=== PATIENT | female | born 1940 | race Caucasian/White ===

== ENCOUNTER 2018-03-14 14:00 | Inpatient (IN) | payer MEDICARE, MEDICAID ==
[~2018-03-14] VITALS: Ht 160 cm; Wt 63.0 kg
--- NOTE | 2018-03-14 14:30 | NUR ---
77 yo female bb son. patient is alert and oriented, c/o diarrhea x 1 week. patient assisted to er bed, skin warm and dry, resp even and unlabored. awaiing orders from provder
[2018-03-14 14:50] LABS: BASOPHILS % (AUTO) 0.2 % (0.0-2.0); EOSINOPHILS % (AUTO) 0.6 % (0.0-6.0); HEMATOCRIT 30 % (33-45); HEMOGLOBIN 10.1 g/dL (11.5-14.8); LYMPHOCYTES # (AUTO) 2.4 /CMM (0.8-4.8); LYMPHOCYTES % (AUTO) 26.1 % (20.0-44.0); MEAN CORPUSCULAR HGB CONC 34 g/dl (31.0-36.0); MEAN CORPUSCULAR VOLUME 97 fL (82-100); MONOCYTES # (AUTO) 0.6 /CMM (0.1-1.30); MONOCYTES % (AUTO) 6.6 % (2.0-12.0); NEUTROPHILS % (AUTO) 66.5 % (43.0-81.0); PLATELET COUNT (AUTO) 252 /CMM (150-450); RED BLOOD CELL COUNT(AUTO) 3.12 MIL/uL (4.0-5.2); WHITE BLOOD COUNT (AUTO) 9.1 K/uL (4.3-11.0)
--- NOTE | 2018-03-14 14:55 | NUR ---
20g right hand iv started, blood sample obtained and sent to lab. medicated pt er ordered
[2018-03-14 14:58] LABS: CARBON DIOXIDE 26 mmol/L (21-32); CHLORIDE 98 mmol/L (98-107); CREATININE 0.8 mg/dL (0.6-1.3); GLUCOSE 191 mg/dL (74-106); POTASSIUM 3.9 mmol/L (3.5-5.1); SODIUM SERUM 134 mmol/L (136-145); UREA NITROGEN, BLOOD 19 mg/dL (7-18)
[2018-03-14] MEDS ORDERED: IV NS 0.9% 1,000 ML BAG IV ONE (15:00)
[2018-03-14 15:05] LABS: ALANINE AMINOTRANSFERASE 20 U/L (12-78); ALBUMIN 3.2 g/dL (3.4-5.0); ALKALINE PHOSPHATASE 145 U/L (46-116); ASPARTATE AMINOTRANSFERASE 17 U/L (15-37); BILIRUBIN,DIRECT 0.1 mg/dL (0.0-0.2); BILIRUBIN,TOTAL 0.4 mg/dL (0.2-1.0); TOTAL PROTEIN, SERUM 6.3 g/dL (6.4-8.2)
[2018-03-14] MEDS ORDERED: ESOM40CA PO (15:45)
[2018-03-14] MEDS ORDERED: ESCI20TA PO (15:45)
[2018-03-14] MEDS ORDERED: IRBE1TAB43 PO (15:45)
[2018-03-14] MEDS ORDERED: METF-440 PO (15:45)
[2018-03-14 16:04] LABS: APPEARANCE,URINE Clear (CLEAR); BILIRUBIN,URINE Negative (NEGATIVE); COLOR,URINE Yellow (YELLOW); KETONES,URINE Negative (NEGATIVE); LEUKOCYTE ESTERASE ,URINE Small (NEGATIVE); NITRITE, URINE Negative (NEGATIVE); PH,URINE 5.5 (5.0-8.0); PROTEIN,URINE Negative (NEGATIVE); UGLUCOSE Negative (NEGATIVE); UROBILINOGEN,URINE 0.2 EU/dL (0.2)
[2018-03-14 16:25] LABS: BACTERIA,URINE Rare /HPF (None Seen); BLOOD, URINE 2 Ery/uL (NEGATIVE); RBC,URINE 21-50 /HPF (0-2); SQUAMOUS EPITHELIAL CELL,UR Rare /HPF (None Seen)
--- NOTE | 2018-03-14 17:32 | NUR ---
REPORT GIVEN TO GERARDO FOR CONT OF CARE
--- NOTE | 2018-03-14 17:53 | NUR ---
pt transported to bed by emt
--- NOTE | 2018-03-14 17:55 | NUR ---
RN NOTE RECEIVED REPORT FROM DO IN THE ER. RECEIVED PATIENT 77 YEAR OLD FEMALE BROUGHT IN THE HOSPITAL BY SON FROM HOME FOR C/O DIARRHEA FOR 1 WEEK. PATIENT IS ALERT AND ORIENTED X4. SHE IS ABLE TO VERBALIZE NEEDS AND MAKE THINGS KNOWN. SHE IS ABLE TO SPEAK A LITTLE SWEDISH BUT PREFERRED LANGUAGE IS [place] VERDEAN. BREATHING EVEN UNLABORED WITH NO DISTRESS NOTED SATURATING WELL TO ROOM AIR. ON CARDIA MONITOR OF SINUS RHYTHM HR OF 96. PATIENT IS ABLE TO AMBULATE WITH ASSIST. SKIN INTACT AND WARM TO TOUCH. RIGHT HAND IV SITE INTACT PATENT SALINE LOCK. BED LOCK AND LOW POSITION. ALL SAFETY MEASURES DONE. WILL CONTINUE TO MONITOR.
[2018-03-14 18:25] VITALS: BP 164/89
[2018-03-14] MEDS ORDERED: IV NS 0.9% 1,000 ML IV PRN (18:53)
[2018-03-14] MEDS ORDERED: Z GUARD REMEDY 2 OZ OINT TP PRN (19:00)
[2018-03-14] MEDS ORDERED: ONDANSETRON HCL/PF 4 MG/2 ML VIAL IVP PRN (19:00)
[2018-03-14] MEDS ORDERED: ACETAMINOPHEN 325 MG TABLET PO PRN (19:00)
[2018-03-14] MEDS ORDERED: ZOLPIDEM TARTRATE 5 MG TABLET PO PRN (19:00)
[2018-03-14] MEDS ORDERED: HYDROCODONE/APAP 5/325MG 1 EACH TABLET PO PRN (19:00)
--- NOTE | 2018-03-14 19:30 | NUR ---
TELE/ RN NOTES; RECEIVED PT. IN BED W/ RA SAT. 98%. DENIES ANY C/O PAIN OR SOB AT PRESENT. A/O X 4. SPEAKS KUWAITI/INDIAN. ON TELE MONITOR W/ SR @ 92. ABLE TO MAKE NEEDS KNOWN. W/ IVF GOING VIA RIGHT HAND G 20 PATENT AND INTACT W/ NO S/S OF INFECTION/INFILTRATION NOTED. CONTINENT OF B/B. ABLE TO AMBULATE W/ STEADY GAIT TO THE BATHROOM. CALL LIGHT W/REACH. WILL CONTINUE TO MONITOR.
[2018-03-14 20:00] VITALS: BP 161/77
[2018-03-14] MEDS ORDERED: ENOXAPARIN SODIUM 40 MG/0.4 ML DISP.SYRIN SQ SCH (20:00)
[2018-03-14] MEDS ORDERED: CEFTRIAXONE 1 G in IV D5W 50 ML IV SCH (20:00)
[2018-03-14] MEDS: METRONIDAZOLE 500MG/ NS 100ML 500 MG in PREMIX 1 EA IV SCH (21:30)
[2018-03-15] VITALS: BP 147/73
[2018-03-15] MEDS ORDERED: CEFTRIAXONE 1 G in IV D5W 50 ML IV SCH (00:30)
[2018-03-15] MEDS ORDERED: METRONIDAZOLE 500MG/ NS 100ML 500 MG in PREMIX 1 EA IV SCH (00:30)
[2018-03-15 04:00] VITALS: BP 160/94
[2018-03-15] MEDS: METRONIDAZOLE 500MG/ NS 100ML 500 MG in PREMIX 1 EA IV SCH (04:29)
[2018-03-15] MEDS ORDERED: hydrALAZINE HCL IV 20 MG VIAL IV PRN (05:00)
[2018-03-15 06:06] VITALS: BP 139/76
[2018-03-15 06:55] LABS: BASOPHILS % (AUTO) 0.2 % (0.0-2.0); EOSINOPHILS % (AUTO) 1.3 % (0.0-6.0); HEMATOCRIT 32 % (33-45); HEMOGLOBIN 10.8 g/dL (11.5-14.8); LYMPHOCYTES # (AUTO) 2.9 /CMM (0.8-4.8); LYMPHOCYTES % (AUTO) 31.1 % (20.0-44.0); MEAN CORPUSCULAR HGB CONC 34 g/dl (31.0-36.0); MEAN CORPUSCULAR VOLUME 96 fL (82-100); MONOCYTES # (AUTO) 0.8 /CMM (0.1-1.30); MONOCYTES % (AUTO) 8.3 % (2.0-12.0); NEUTROPHILS # (AUTO) 5.4 /CMM (1.8-8.9); NEUTROPHILS % (AUTO) 59.1 % (43.0-81.0); PLATELET COUNT (AUTO) 271 /CMM (150-450); RDW COEFFICIENT OF VARIATION 17.3 (11.5-15.0); RED BLOOD CELL COUNT(AUTO) 3.31 MIL/uL (4.0-5.2); WHITE BLOOD COUNT (AUTO) 9.2 K/uL (4.3-11.0)
[2018-03-15 07:21] LABS: ALANINE AMINOTRANSFERASE 17 U/L (12-78); ALBUMIN 3.1 g/dL (3.4-5.0); ALKALINE PHOSPHATASE 113 U/L (46-116); ASPARTATE AMINOTRANSFERASE 20 U/L (15-37); BILIRUBIN,TOTAL 0.4 mg/dL (0.2-1.0); CARBON DIOXIDE 26 mmol/L (21-32); CHLORIDE 103 mmol/L (98-107); CHOLESTEROL 183 mg/dL (<200); CREATININE 0.6 mg/dL (0.6-1.3); GLUCOSE 144 mg/dL (74-106); HDL CHOLESTEROL 64 mg/dL (40-60); LDL 103 mg/dL (0-99); MAGNESIUM 1.5 mg/dL (1.8-2.4); PHOSPHORUS 3.6 mg/dL (2.5-4.9); POTASSIUM 3.5 mmol/L (3.5-5.1); SODIUM SERUM 138 mmol/L (136-145); THYROID STIMULATING HORMONE 1.474 uIU/mL (0.358-3.74); TOTAL PROTEIN, SERUM 6.5 g/dL (6.4-8.2); TRIGLYCERIDES 108 mg/dL (30-150); UREA NITROGEN, BLOOD 10 mg/dL (7-18)
--- NOTE | 2018-03-15 07:29 | NUR ---
TELE/RN NOTES: NO ACUTE CHANGES NOTED DURING THIS SHIFT. REPORT GIVEN TO AM NURSE FOR RAFA.
[2018-03-15 08:00] VITALS: BP 123/84
--- NOTE | 2018-03-15 08:30 | NUR ---
REPORT GIVEN TO LEONIDAS KEY FOR RAFA.
[2018-03-15] MEDS: ESCITALOPRAM OXALATE (10 MG) 10 MG TABLET PO SCH ×2 (08:45→08:48)
--- NOTE | 2018-03-15 09:57 | NUR ---
PLASTER LATHER NOTE: RECEIVED AN ORDER FROM DR. MELLY PECK THAT THE PATIENT CAN GO HOME TODAY FOR HER CHEMOTHERAPY SESSION. READ TO MD ALL THE PATIENT'S LAB WORKS FOR TODAY, INCLUDING THE VITAL SIGN THIS MORNING. PER MD, HE WILL CONTACT THE PATIENT WITHIN 2 DAYS RE: THE BLOOD CULTURE THAT WAS DONE ON 06/14/18. PER DR. PICKARD IT'S OKAY TO GIVE HIS CELLPHONE NUMBER AND PATIENT CAN ALSO CONTACT HIM WITHIN 2 DAYS FOR THE RESULTS AND THE PATIENT CAN ALSO PROVIDE TO HER PCP THE CP# OF DR. MELLY PECK FOR ANY QUESTIONS RE: PATIENT CARE DURING HOSPITALIZATION. PATIENT WAS ASKED FOR HER PREFERRED PHARMACY IN ORDER FOR DR. MELLY PECK TO SEND AN ELECTRONIC PRESCRIPTION FOR THE PATIENT. PATIENT WAS ALSO TOLD THAT SHE WILL BE PRESCRIBED BY MD FOR ANOTHER 7-10 DAYS COURSE OF ANTIBIOTIC. PATIENT UNDERSTOOD AND WAS INFORMED THAT PAPERWORK FOR DISCHARGE WILL BE PREPARE.
--- NOTE | 2018-03-15 10:30 | NUR ---
MS RN NOTE: PATIENT WAS DISCHARGED TO HOME ACCOMPANIED BY HER , [employer] VIA PRIVATE CAR. ALL DISCHARGE PAPERWORK WAS RELEASED TO THE PATIENT. EXIT CARE WAS DONE. EMPHASIZED TO PATIENT AND THAT THEY CAN ALWAYS CALL DR. MELLY PECK RE: THE BLOOD CULTURE RESULTS WITHIN [address] MELLY PECK'S CP NUMBER WAS GIVEN. NO VACCINE WAS GIVEN. INFORMED PATIENT THAT DR. MELLY PECK WILL SEND THE ELECTRONIC PRESCRIPTION DIRECTLY TO STATE [facility] TEL #: [phone] AND FAX #: [phone]. DR. MELLY PECK WAS AWARE OF THE STATE [facility]'S INFORMATION. ALL BELONGINGS WERE RELEASED TO THE PATIENT UPON DISCHARGE. PATIENT WAS WHEELED OUT TO THE MAIN LOBBY VIA WHEELCHAIR BY THE ASSIGNED NEON SIGN INSTALLER. DENIED PAIN AND NO EPISODE OF DIARRHEA UPON DISCHARGE.
== END 2018-03-15 10:26 | disposition home or self-care (01) | DRG 371 ==
LOC: ER 14:01 → TELE1 17:11 → MEDSG1 03-15 09:58
PROVIDERS: ADMIT Nurse Practitioner Acute Care; ATTEND Nurse Practitioner Acute Care
DX: A04.9 Bacterial intestinal infection, unspecified (principal); N17.0 Acute kidney failure with tubular necrosis; E87.2 Acidosis; C25.9 Malignant neoplasm of pancreas, unspecified; E87.1 Hypo-osmolality and hyponatremia; D63.8 Anemia in other chronic diseases classified elsewhere; N39.0 Urinary tract infection, site not specified; I10 Essential (primary) hypertension; I25.10 Atherosclerotic heart disease of native coronary artery without angina pectoris; E88.09 Other disorders of plasma-protein metabolism, not elsewhere classified; Z90.710 Acquired absence of both cervix and uterus; Z79.899 Other long term (current) drug therapy
CPT/HCPCS: 36415; 80048-TC; 80053-TC; 80061-TC; 80076-TC; 81000-TC; 83605-TC; 83735-TC; 84100-TC; 84443-TC; 85025-TC; 87040-TC; 87081-TC; 93307-TC; A4216; A4606; J0360; J0696; J1650; J3490; J7030; J7060; Z7610

== ENCOUNTER 2018-03-28 12:36 | Outpatient (CLI) | payer MEDICARE, MEDICAID ==
[~2018-03-28] VITALS: Ht 160 cm; Wt 63.0 kg
[~2018-03-28 12:36] MED LIST: ESCI20TA PO; ESOM40CA PO; IRBE1TAB43 PO; METF500T4 PO
[2018-03-28 12:45] VITALS: BP 118/66
== END 2018-03-28 23:59 | disposition home or self-care (01) ==
LOC: MSC 12:36
PROVIDERS: ATTEND Internal Medicine
DX: Z09 Encounter for follow-up examination after completed treatment for conditions other than malignant neoplasm (principal); E11.9 Type 2 diabetes mellitus without complications; Z79.84 Long term (current) use of oral hypoglycemic drugs; C25.9 Malignant neoplasm of pancreas, unspecified; Z85.038 Personal history of other malignant neoplasm of large intestine; D53.9 Nutritional anemia, unspecified

== ENCOUNTER 2018-04-02 08:13 | Inpatient (IN) | payer MEDICARE, MEDICAID ==
[~2018-04-02] VITALS: Ht 172.7 cm; Wt 63.5 kg
[~2018-04-02 08:13] MED LIST changes: +METF-440 PO; -METF500T4 PO
--- NOTE | 2018-04-02 08:13 | NUR ---
BBFAMILY FOR WEAKNESS AND DIZZINESS, S/P FELL AND PASSED OUT LAST NIGHT. PLACED ON MONITOR. AWAITING MD ORDER
--- NOTE | 2018-04-02 08:17 | NUR ---
CALLED IN WR- PT IS IN THE RESTROOM
[2018-04-02] MEDS ORDERED: IV NS 0.9% 1,000 ML BAG IV ONE (09:00)
[2018-04-02] MEDS ORDERED: METH2.5T PO (09:02)
[2018-04-02] MEDS ORDERED: AMLO5TAB7 PO (09:02)
[2018-04-02] MEDS ORDERED: ENOX60DI SQ (09:02)
[2018-04-02] MEDS ORDERED: METO-356 PO (09:02)
[2018-04-02 09:07] LABS: BASOPHILS # (AUTO) 0.1 /CMM (0.0-0.2); BASOPHILS % (AUTO) 0.4 % (0.0-2.0); EOSINOPHILS % (AUTO) 0.1 % (0.0-6.0); HEMATOCRIT 26 % (33-45); HEMOGLOBIN 8.9 g/dL (11.5-14.8); LYMPHOCYTES # (AUTO) 2.5 /CMM (0.8-4.8); LYMPHOCYTES % (AUTO) 7.3 % (20.0-44.0); MEAN CORPUSCULAR HGB CONC 34 g/dl (31.0-36.0); MEAN CORPUSCULAR VOLUME 97 fL (82-100); MONOCYTES # (AUTO) 5.9 /CMM (0.1-1.30); MONOCYTES % (AUTO) 17.6 % (2.0-12.0); NEUTROPHILS % (AUTO) 74.6 % (43.0-81.0); PLATELET COUNT (AUTO) 53 /CMM (150-450); RDW COEFFICIENT OF VARIATION 17.9 (11.5-15.0); RED BLOOD CELL COUNT(AUTO) 2.72 MIL/uL (4.0-5.2)
[2018-04-02 09:29] LABS: ALANINE AMINOTRANSFERASE 31 U/L (12-78); ALBUMIN 3.2 g/dL (3.4-5.0); ALKALINE PHOSPHATASE 210 U/L (46-116); ASPARTATE AMINOTRANSFERASE 40 U/L (15-37); BILIRUBIN,DIRECT 0.2 mg/dL (0.0-0.2); BILIRUBIN,TOTAL 1.1 mg/dL (0.2-1.0); CALCIUM, SERUM 9.2 mg/dL (8.5-10.1); CARBON DIOXIDE 26 mmol/L (21-32); CHLORIDE 100 mmol/L (98-107); CREATININE 0.7 mg/dL (0.6-1.3); GLUCOSE 137 mg/dL (74-106); POTASSIUM 3.2 mmol/L (3.5-5.1); SODIUM SERUM 136 mmol/L (136-145); TOTAL PROTEIN, SERUM 6.3 g/dL (6.4-8.2); UREA NITROGEN, BLOOD 14 mg/dL (7-18); WHITE BLOOD COUNT (AUTO) 33.5 K/uL (4.3-11.0)
[2018-04-02 09:30] LABS: INR 0.99 (0.87-1.13)
[2018-04-02 09:31] LABS: TROPONIN I < 0.017 ng/mL (0.00-0.056)
[2018-04-02 09:56] LABS: BAND % (MANUAL) 5 % (0.0-5.0); LYMPHOCYTES % (MANUAL) 8 % (16-48); METAMYELOCYTES % 1 % (0-0); MONOCYTES % (MANUAL) 14 % (0-11.0); MYELOCYTES % 1 % (0-0); NEUTROPHILS % (MANUAL) 71 (42-76)
--- NOTE | 2018-04-02 09:57 | NUR ---
VOTING MACHINE REPAIRER AT BEDSIDE
[2018-04-02] MEDS ORDERED: IOHEXOL-350 100 ML VIAL IV ONE (10:07)
--- NOTE | 2018-04-02 10:13 | NUR ---
PT TAKEN TO CT
[2018-04-02 10:15] LABS: APPEARANCE,URINE Slightly Cloudy (CLEAR); BILIRUBIN,URINE Negative (NEGATIVE); BLOOD, URINE Trace-intact Ery/uL (NEGATIVE); COLOR,URINE Yellow (YELLOW); KETONES,URINE 15 (NEGATIVE); LEUKOCYTE ESTERASE ,URINE Trace (NEGATIVE); NITRITE, URINE Negative (NEGATIVE); PH,URINE 8.5 (5.0-8.0); PROTEIN,URINE 30 mg/dl (NEGATIVE); UGLUCOSE Negative (NEGATIVE)
[2018-04-02] MEDS ORDERED: VANCOMYCIN 1 GM in IV D5W 250 ML IV ONE (10:30)
[2018-04-02] MEDS ORDERED: MEROPENEM 1,000 MG in IV NS 0.9% 50 ML IV ONE (10:30)
[2018-04-02 10:34] LABS: RBC,URINE 0-2 /HPF (0-2)
--- NOTE | 2018-04-02 10:34 | NUR ---
TELE 306.2 NURSE HARMON
[2018-04-02 10:35] LABS: BACTERIA,URINE Few /HPF (None Seen); SQUAMOUS EPITHELIAL CELL,UR Few /HPF (None Seen)
--- NOTE | 2018-04-02 11:13 | NUR ---
REPORT GIVEN TO [facility] ROOM 306-2 TRNASFER VIA ACLS PROTOCOL.
--- NOTE | 2018-04-02 11:14 | NUR ---
ANAMARIA STARTED ENDORSE TO JOSUE TO CONTINUE INPATIENT
[2018-04-02 11:30] VITALS: BP 150/76
--- NOTE | 2018-04-02 11:30 | NUR ---
ADMISSION NOTES PATIENT ADMITTED FROM ER 77 Y/OL [place] SPEAKER FEMALE PATIENT ON TELE, DX OF UTI, SYNCOPE, AND PMN. PATIENT ON TELE MONITOR ST-119. PATIENT HAS NO ACUTE RESPIRATORY DISTRESS. PATIENT A/O X3, FORGETFUL, COMPLAINING OF NAUSEA, AND ABDOMINAL PAIN 5/10 PER PAIN SCALE. PATIENT REFUSED PAIN MEDICATION AT THIS TIME, PATIENT STATE " I WOULD LIKE TO SLEEP NOW". PATIENT SKIN ASSESSMENT DONE SKIN INTACT. PATIENT AMBULATORY, USING BATHROOM. V/S TAKEN T-98.1, R-19, P-119, BP-150/76, 02- ROOM AIR. PATIENT HAS A IV PORT ON RIGHT UPPER CHEAT INTACT INFUSING VANCOMYCIN AT THIS TIME FROM ER. NEEDS ATTENDED AND ANTICIPATED. MELLY PECK INBOUND TELEMARKETER AWARE OF NEW PATIENT AND MEDICATION. NEXT TO THE BED. CALL LIGHT WITHIN TO REACH. CONTINUED MONITORING. PATIENT'S HOME MEDICATION SANDED TO THE PHARMACY.
[2018-04-02] MEDS ORDERED: LIPA1CAP15 PO (13:12)
--- NOTE | 2018-04-02 13:52 | NUR ---
RN NOTES PATIENT IN THE BED NO ACUTE DISTRESS, ASSIST GOING BATHROOM, PAGED MELLY PECK FOR MEDICATION RECONCILIATION, AND DIET, WAITING FOR RESPOND. CALL LIGHT WITHIN TO REACH. FAMILY NEXT TO THE BED. CONTINUED MONITORING.
[2018-04-02] MEDS ORDERED: ACETAMINOPHEN 325 MG TABLET PO PRN ×2 (16:00→23:30)
[2018-04-02] MEDS: HYDROCODONE/APAP 10/325MG 1 EA TABLET PO PRN (16:13)
--- NOTE | 2018-04-02 16:13 | NUR ---
RN NOTES TAKEN RECTAL TEMPERATURE AND GET 101.5 F. ADMINISTERED NARCO 10/325 MG PO PRN PRESCRIBED BY MD. ALSO ADMINISTERED ICE APPLICANT, AND CRASHED ICE. CONTINUED MONITORING.
[2018-04-02 16:33] VITALS: BP 147/75
--- NOTE | 2018-04-02 17:59 | NUR ---
RN NOTES T-98.5f AT THIS TIME, V/S STABLE, NO COMPLAINING OF PAIN AT THIS TIME. PATIENT EATING DINNER, CALL LIGHT WITHIN TO REACH. NEXT TO THE BED. CONTINUED MONITORING.
--- NOTE | 2018-04-02 19:25 | NUR ---
MILITARY SCIENCE INSTRUCTOR OPENING NOTE RECEIVED PATIENT IN BED, ALERT ORIENTED X3, ON ROOM AIR, TOLERATING WELL. IN NO APPARENT DISTRESS OR DISCOMFORT AT THIS TIME. RESPIRATIONS EVEN AND UNLABORED. DENIES PAIN AND SOB. PATIENT ON TELE MONITORING WITH HEART RATE OF 114 SINUS TACHY. PATIENT WITH RIGHT UPPER CHEST PORTACATH. PATENT AND INTACT. BATHROOM PRIVILEGES WITH ASSISTANCE, PATIENT IS OMANI SPEAKING, ABLE TO VERBALIZE NEEDS, AT BEDSIDE, INSTRUCTIONS GIVEN TO CALL BEFORE GETTING UP. SAFETY MEASURES IN PLACE, BED IN LOW LOCKED POSITION M SIDE RAILS UP X2, CALL LIGHT WITHIN EASY REACH. WILL CONTINUE TO MONITOR.
[2018-04-02 19:46] VITALS: BP 120/61
[2018-04-02 20:00] VITALS: BP 120/61
[2018-04-02] MEDS ORDERED: IV NS 0.9% 1,000 ML IV PRN (23:11)
[2018-04-02] MEDS ORDERED: ZOLPIDEM TARTRATE 5 MG TABLET PO PRN (23:30)
[2018-04-02] MEDS ORDERED: ONDANSETRON HCL/PF 4 MG/2 ML VIAL IVP PRN (23:30)
[2018-04-02] MEDS ORDERED: Z GUARD REMEDY 2 OZ OINT TP PRN (23:30)
[2018-04-03] MEDS ORDERED: VANCOMYCIN 1 GM in IV NS 0.9% 250 ML IV ONE ×2
[2018-04-03] MEDS ORDERED: VANCOMYCIN 1 GM VIAL ONE (00:08)
[2018-04-03] MEDS: HYDROCODONE/APAP 10/325MG 1 EA TABLET PO PRN (00:25)
[2018-04-03] MEDS ORDERED: METOPROLOL TARTRATE 25 MG TABLET PO ONE (01:00)
[2018-04-03 01:37] VITALS: BP 176/89
--- NOTE | 2018-04-03 01:45 | NUR ---
PATIENT HAS BEEN SINUS TACHY IN 120S SINCE THE ADMISSION. PATIENT'S HEART RATE INCREASED TO 130S SEVERAL TIMES. BP ELEVATED TO 163/95. REPORTED TO GENERAL MERCHANDISE MANAGER DR. CLIFF SIMON. RECEIVED ORDERS FOR LOPRESSOR 25MG X1. ADMINISTERED MEDICATION ORDERED, WILL CONTINUE TO MONITOR. AND REASSESS.
--- NOTE | 2018-04-03 03:30 | NUR ---
PATIENT BP DECREASED TO 121/67 WITH HR OF 101. WILL CONTINUE TO MONITOR.
[2018-04-03] MEDS ORDERED: POTASSIUM CHLORIDE 20 MEQ TAB.PRT.SR PO ONE (04:00)
--- NOTE | 2018-04-03 04:00 | NUR ---
CONTACTED DR. SIMON REGARDING PATIENT'S POTASSIUM LEVEL OF 3.2 . ORDER RECEIVED FOR K-DUR 40MEQ. WILL ADMINISTER MEDICATION ORDERED AND CONTINUE TO MONITOR.
[2018-04-03] MEDS ORDERED: MEROPENEM 1 G VIAL IV ONE (04:33)
[2018-04-03 04:35] VITALS: BP 121/67
[2018-04-03] MEDS: MEROPENEM 1 G in IV NS 0.9% 100 ML IV SCH ×3 (04:48→20:20)
[2018-04-03 06:53] LABS: EOSINOPHILS % (AUTO) 0.2 % (0.0-6.0); HEMATOCRIT 23 % (33-45); HEMOGLOBIN 7.6 g/dL (11.5-14.8); LYMPHOCYTES # (AUTO) 1.9 /CMM (0.8-4.8); LYMPHOCYTES % (AUTO) 5.9 % (20.0-44.0); MEAN CORPUSCULAR HGB CONC 33 g/dl (31.0-36.0); MEAN CORPUSCULAR VOLUME 97 fL (82-100); MONOCYTES # (AUTO) 0.7 /CMM (0.1-1.30); MONOCYTES % (AUTO) 2.3 % (2.0-12.0); NEUTROPHILS # (AUTO) 28.8 /CMM (1.8-8.9); NEUTROPHILS % (AUTO) 91.6 % (43.0-81.0); RDW COEFFICIENT OF VARIATION 19.1 (11.5-15.0); RED BLOOD CELL COUNT(AUTO) 2.36 MIL/uL (4.0-5.2)
[2018-04-03 06:54] LABS: ALANINE AMINOTRANSFERASE 20 U/L (12-78); ALBUMIN 2.5 g/dL (3.4-5.0); ALKALINE PHOSPHATASE 196 U/L (46-116); ASPARTATE AMINOTRANSFERASE 30 U/L (15-37); BILIRUBIN,TOTAL 0.6 mg/dL (0.2-1.0); CALCIUM, SERUM 7.9 mg/dL (8.5-10.1); CARBON DIOXIDE 24 mmol/L (21-32); CHLORIDE 101 mmol/L (98-107); CREATININE 0.8 mg/dL (0.6-1.3); GLUCOSE 139 mg/dL (74-106); PHOSPHORUS 2.7 mg/dL (2.5-4.9); SODIUM SERUM 136 mmol/L (136-145); TOTAL PROTEIN, SERUM 5.3 g/dL (6.4-8.2); UREA NITROGEN, BLOOD 10 mg/dL (7-18)
[2018-04-03 06:55] LABS: PLATELET COUNT (AUTO) 36 /CMM (150-450); WHITE BLOOD COUNT (AUTO) 31.4 K/uL (4.3-11.0)
--- NOTE | 2018-04-03 06:55 | NUR ---
MODELING AND SIMULATION ANALYST CLOSING NOTE PATIENT IN BED, SLEEPING, EASILY AROUSED WITH VERBAL STIMULI, ORIENTED X3, ON ROOM AIR, TOLERATING WELL. IN NO APPARENT DISTRESS OR DISCOMFORT AT THIS TIME. RESPIRATIONS EVEN AND UNLABORED. DENIES PAIN AND SOB. PATIENT ON TELE MONITORING WITH HEART RATE OF 100 SINUS TACHY. PATIENT WITH RIGHT UPPER CHEST PORTACATH., INTACT. RIGHT WRIST 22G IVC, PATENT AND INTACT WITH FLUIDS RUNNING AT 75ML/HR. BATHROOM PRIVILEGES WITH ASSISTANCE, PATIENT IS LIBERIAN SPEAKING, ABLE TO VERBALIZE NEEDS. PATIENT DID NOT EXHIBIT FEVER THROUGHOUT SHIFT. ALL NURSING INTERVENTIONS COMPLETE, ORDERS CARRIED OUT. KEPT CLEAN AND COMFORTABLE. SAFETY MEASURES IN PLACE, BED IN LOW LOCKED POSITION SIDE RAILS UP X2, CALL LIGHT WITHIN EASY REACH. WILL ENDORSE TO AM NURSE FOR RAFA.
[2018-04-03 07:02] LABS: IRON, SERUM 29 ug/dl (50-175); TOTAL IRON BINDING CAPACITY 211 ug/dl (250-450)
[2018-04-03 07:04] LABS: MAGNESIUM 1.4 mg/dL (1.8-2.4)
[2018-04-03 07:45] LABS: POTASSIUM 2.7 mmol/L (3.5-5.1)
[2018-04-03] MEDS ORDERED: FEE PK DOSING 1 MIN EA MC ONE (07:59)
[2018-04-03 08:00] VITALS: BP 125/63
[2018-04-03] MEDS ORDERED: AMYLASE/LIPASE/PROTEASE 1 CAP CAPSULE.DR PO SCH (08:00)
--- NOTE | 2018-04-03 08:00 | NUR ---
TELEPHONE SUPERVISOR AM NOTES RECEIVED PATIENT IN BED, ALERT ORIENTED X3, ON ROOM AIR, TOLERATING WELL. IN NO APPARENT DISTRESS OR DISCOMFORT AT THIS TIME. RESPIRATIONS EVEN AND UNLABORED. DENIES PAIN AND SOB. PATIENT ON TELE MONITORING WITH HEART RATE OF 114 SINUS TACHY. PATIENT WITH RIGHT UPPER CHEST PORTACATH. PATENT AND INTACT. BATHROOM PRIVILEGES WITH ASSISTANCE, PATIENT IS ETHIOPIAN SPEAKING, ABLE TO VERBALIZE NEEDS, AT BEDSIDE, INSTRUCTIONS GIVEN TO CALL BEFORE GETTING UP. SAFETY MEASURES IN PLACE, BED IN LOW LOCKED POSITION M SIDE RAILS UP X2, CALL LIGHT WITHIN EASY REACH. WILL CONTINUE TO MONITOR.
--- NOTE | 2018-04-03 08:10 | NUR ---
DR PECK AND PHARMACIST MADE AWARE OF K+2.7,MG 1.4 WITH ORDERS FOR REPLACEMENT.DR PECK AWARE OF PLT CT 36 AND WBC 31.4
[2018-04-03 08:20] LABS: CHOLESTEROL 157 mg/dL (<200); HDL CHOLESTEROL 38 mg/dL (40-60); LDL 90 mg/dL (0-99); THYROID STIMULATING HORMONE 2.477 uIU/mL (0.358-3.74); TRIGLYCERIDES 110 mg/dL (30-150)
[2018-04-03] MEDS: ESCITALOPRAM OXALATE (10 MG) 10 MG TABLET PO SCH (08:52)
[2018-04-03] MEDS: METOPROLOL SUCCINATE 25 MG TAB.SR.24H PO SCH (08:53)
[2018-04-03] MEDS: LIPASE/PROTEASE/AMYLASE 1 EACH CAPSULE.DR PO SCH ×3 (08:53→18:31)
[2018-04-03] MEDS: PANTOPRAZOLE 40 MG TABLET.DR PO SCH (08:53)
[2018-04-03] MEDS: AMLODIPINE BESYLATE 5 MG TABLET PO SCH (08:54)
[2018-04-03] MEDS: POTASSIUM CHLORIDE 20 MEQ TAB.PRT.SR PO SCH ×3 (08:54→11:40)
[2018-04-03] MEDS ORDERED: ENOXAPARIN SODIUM 60 MG/0.6 ML DISP.SYRIN SQ SCH (09:00)
[2018-04-03 09:23] LABS: BAND % (MANUAL) 17 % (0.0-5.0); LYMPHOCYTES % (MANUAL) 4 % (16-48); MONOCYTES % (MANUAL) 9 % (0-11.0); NEUTROPHILS % (MANUAL) 70 (42-76)
[2018-04-03] MEDS: Magnesium 1GM/D5W 100ML PREMIX 100 ML IV SCH ×3 (09:32→13:01)
[2018-04-03] MEDS: VANCOMYCIN 0.75 GM in IV D5W 250 ML IV SCH ×2 (13:02→23:30)
[2018-04-03 16:00] VITALS: BP 125/64
--- NOTE | 2018-04-03 17:49 | NUR ---
Patient speaks Comoran, she is alert and pleasant, at bedside. She lives locally with her spouse. She was ambulatory and independent with adl's prior to admit. Has no DME or homehealth reported. Family is involved and supportive, family will provide ride once discharge. Addendum: 04/03/18 at 1750 by CHASITY YAÑEZ RN Amended: Links added.
--- NOTE | 2018-04-03 19:40 | NUR ---
MS RN INITIAL NOTE PT IS IN BED AWAKE AND ALERT, SLIGHT LANGUAGE BARRIER. DAY RN TO TRANSLATE SAFETY, USE OF CALL LIGHT AND ADDRESS AND OTHER QUESTIONS PT MAY HAVE. NO SIGNS OF SOB OR DISTRESS, BREATHING EVENLY AND UNLABORED ON RA. DENIES PAIN AT THIS TIME. IV ACCESS IS INTACT AND PATENT. BED IS IN LOW AND LOCKED POSITION, BED ALARM IS ON, CALL LIGHT WITHIN REACH. WILL CONTINUE TO MONITOR PT
[2018-04-03 20:00] VITALS: BP 151/82
[2018-04-04] VITALS (10 sets, daily range): BP systolic 132–181; BP diastolic 72–91
[2018-04-04] MEDS: MEROPENEM 1 G in IV NS 0.9% 100 ML IV SCH ×3 (04:02→22:54)
--- NOTE | 2018-04-04 06:36 | NUR ---
MS RN CLOSING NOTE PT IS IN BED SLEEPING, EASILY AROUSED. NO SIGNS OF SOB OR DISTRESS, BREATHING EVENLY AND UNLABORED ON RA. IV ACCESS IS INTACT AND PATENT WITH FLUIDS INFUSING. ALL NEEDS WERE ANTICIAPTED AND MET. BED IS IN LOW AND LOCKED POSITION, BED ALARM IS ON, CALL LIGHT WITHIN REACH. WILL ENODRSE TO DAYSHIFT
[2018-04-04 06:39] LABS: EOSINOPHILS % (AUTO) 0.2 % (0.0-6.0); HEMATOCRIT 24 % (33-45); HEMOGLOBIN 7.9 g/dL (11.5-14.8); LYMPHOCYTES # (AUTO) 1.7 /CMM (0.8-4.8); LYMPHOCYTES % (AUTO) 4.5 % (20.0-44.0); MEAN CORPUSCULAR HGB CONC 33 g/dl (31.0-36.0); MEAN CORPUSCULAR VOLUME 97 fL (82-100); MONOCYTES # (AUTO) 0.8 /CMM (0.1-1.30); MONOCYTES % (AUTO) 2.2 % (2.0-12.0); NEUTROPHILS # (AUTO) 34.7 /CMM (1.8-8.9); NEUTROPHILS % (AUTO) 93.1 % (43.0-81.0); RDW COEFFICIENT OF VARIATION 19.2 (11.5-15.0); RED BLOOD CELL COUNT(AUTO) 2.45 MIL/uL (4.0-5.2)
[2018-04-04 06:59] LABS: WHITE BLOOD COUNT (AUTO) 37.3 K/uL (4.3-11.0)
[2018-04-04 07:00] LABS: PLATELET COUNT (AUTO) 39 /CMM (150-450)
[2018-04-04 07:12] LABS: ALANINE AMINOTRANSFERASE 18 U/L (12-78); ALBUMIN 2.3 g/dL (3.4-5.0); ALKALINE PHOSPHATASE 242 U/L (46-116); ASPARTATE AMINOTRANSFERASE 22 U/L (15-37); BILIRUBIN,TOTAL 0.6 mg/dL (0.2-1.0); CARBON DIOXIDE 23 mmol/L (21-32); CHLORIDE 100 mmol/L (98-107); CREATININE 0.7 mg/dL (0.6-1.3); GLUCOSE 186 mg/dL (74-106); MAGNESIUM 1.8 mg/dL (1.8-2.4); PHOSPHORUS 1.4 mg/dL (2.5-4.9); POTASSIUM 3.5 mmol/L (3.5-5.1); SODIUM SERUM 133 mmol/L (136-145); TOTAL PROTEIN, SERUM 5.4 g/dL (6.4-8.2); UREA NITROGEN, BLOOD 11 mg/dL (7-18)
[2018-04-04 07:13] LABS: TROPONIN I 0.029 ng/mL (0.00-0.056)
[2018-04-04 07:56] LABS: BAND % (MANUAL) 6 % (0.0-5.0); LYMPHOCYTES % (MANUAL) 7 % (16-48); MONOCYTES % (MANUAL) 8 % (0-11.0); NEUTROPHILS % (MANUAL) 79 (42-76)
--- NOTE | 2018-04-04 08:00 | NUR ---
MS RN AM NOTES RECEIVED PATIENT IN BED, ALERT ORIENTED X2, PT IS CONFUSED AND IS A FALL RISK.PT ATTEMPTED SEVERAL TIMES OF GETTING OUT OF BED WITHOUT ASSISTANCE ALMOST PULLING OUT HER IV PERIPHERAL IV.ON BED ALARM.ON O2 AT 2L/MIN VIA N/C.WITH NO APPARENT DISTRESS OR DISCOMFORT AT THIS TIME. RESPIRATIONS EVEN AND UNLABORED. DENIES PAIN AND SOB. PATIENT WITH RIGHT UPPER CHEST PORTACATH.SITE CLEAN AND DRY. WITH ONGOING IVF OF NS AT 75ML/HR TO RT WRIST INFUSING WELL.PATENT AND INTACT. BATHROOM PRIVILEGES WITH ASSISTANCE, PATIENT IS CUBAN SPEAKING, ABLE TO VERBALIZE NEEDS, AT BEDSIDE, INSTRUCTIONS GIVEN TO CALL BEFORE GETTING UP. SAFETY MEASURES IN PLACE, BED IN LOW LOCKED POSITION.SIDE RAILS UP X2, CALL LIGHT WITHIN EASY REACH. WILL CONTINUE TO MONITOR.
[2018-04-04] MEDS ORDERED: POTASSIUM PHOSPHATE MM 15 MMOL in IV D5W 250 ML IV SCH (08:30)
[2018-04-04] MEDS: ESCITALOPRAM OXALATE (10 MG) 10 MG TABLET PO SCH (08:57)
[2018-04-04] MEDS: LIPASE/PROTEASE/AMYLASE 1 EACH CAPSULE.DR PO SCH ×3 (08:57→18:34)
[2018-04-04] MEDS: AMLODIPINE BESYLATE 5 MG TABLET PO SCH (08:58)
[2018-04-04] MEDS: METOPROLOL SUCCINATE 25 MG TAB.SR.24H PO SCH (08:58)
[2018-04-04] MEDS: PANTOPRAZOLE 40 MG TABLET.DR PO SCH (09:03)
[2018-04-04] MEDS: Potassium Phosphate meq 11 MEQ in IV D5W 100 ML IV SCH ×2 (11:10→12:54)
[2018-04-04] MEDS: VANCOMYCIN 0.75 GM in IV D5W 250 ML IV SCH (12:54)
--- NOTE | 2018-04-04 16:30 | NUR ---
CALLED PT'S ONCOLOGIST,DR KO CARDENAS AND SPOKE TO AF TO OBTAIN PT'S LABS AND RECORDS OF PT'S MOST RECENT VISIT.AF STATED SHE WILL FAX IT OVER.AWAITING FOR LABS AND RECORDS TO BE FAXED OVER.
--- NOTE | 2018-04-04 17:05 | NUR ---
RECEIVED FAXED PT'S RECENT MEDICAL RECORDS AND LABS FROM PT'S ONCOLOGIST:DR KO CARDENAS AND PLACED IN CHART.
--- NOTE | 2018-04-04 17:42 | NUR ---
NOTIFIED DR BAI OF PT'S LACTIC ACID OF 2.[address] BAI STATED TO CALL DR TIWARI INSTEAD OF THE LACTIC ACID RESULT.
--- NOTE | 2018-04-04 17:50 | NUR ---
PAGED DR MCKINLEY (TROUBLE LOCATER FOR DR TIWARI) AND AWAITING TO RETURN CALL.
[2018-04-04] MEDS: IV NS 0.9% 1,000 ML IV PRN (18:00)
--- NOTE | 2018-04-04 18:30 | NUR ---
PAGED DR MCKINLEY(ROOFER VINYL COATING FOR DR TIWARI)FOR LACTIC ACID OF 2.7 THE 2ND TIME AND AWAITING TO RETURN CALL.
--- NOTE | 2018-04-04 18:59 | NUR ---
DR TIWARI RETURNED CALL AND MADE AWARE OF LACTIC ACID OF 2.7 WITH NO NEW ORDER.DR BAI ALSO AWARE.
[2018-04-04] MEDS: FOLIC ACID 1 MG TABLET PO SCH ×2 (19:24→19:26)
[2018-04-04] MEDS: VANCOMYCIN HCL 125 MG/2.5 ML ORAL.SUSP PO SCH ×2 (19:24→19:26)
[2018-04-04] MEDS: HYDROCODONE/APAP 10/325MG 1 EA TABLET PO PRN (19:26)
--- NOTE | 2018-04-04 19:30 | NUR ---
CALLED PHARMACIST ABOUT MYCAM[facility] IVPB WHICH IS STILL NOT AVAILABLE AT THIS TIME.AWAITING FOR DELIVERY.
--- NOTE | 2018-04-04 19:30 | NUR ---
MS/RN OPENING NOTES PT RECEIVED WITH EYES CLOSED. A/OX3. AMERICAN SPEAKING BUT UNDERSTANDS CZECH. ON 2L O2 VIA NC, BREATHING EVEN AND UNLABORED. NO SOB NOTED. RECEIVED PAIN MEDICATION, PAIN NOW 3/10 TO RIGHT WRIST. IV TO RIGHT HAND PATENT AND INTACT RUNNING IVF ORDERED. BED IN LOW/LOCKED POSITION WITH CALL LIGHT IN REACH. SIDE RAILS UPX2 AND BED ALARM ON FOR SAFETY. WILL CONTINUE TO MONITOR
[2018-04-04 20:00] LABS: BILIRUBIN,DIRECT 0.1 mg/dL (0.0-0.2)
[2018-04-04] MEDS: MICAFUNGIN SODIUM 100 MG in IV NS 0.9% 100 ML IV SCH (20:11)
--- NOTE | 2018-04-04 20:15 | NUR ---
MS/RN NOTES ADMINISTERED MYCAMINE LATE, PHARMACY PROVIDED AFTER SCHEDULED TIME.
--- NOTE | 2018-04-04 21:12 | NUR ---
MS/RN NOTES SPOKE TO MELLY PECK. NOTIFIED HIM OF PT'S LACTIC ACID OF 2.8. NO NEW ORDERS AT THIS TIME
[2018-04-05] VITALS (8 sets, daily range): BP systolic 136–150; BP diastolic 76–88
[2018-04-05] MEDS: VANCOMYCIN 1 GM in IV D5W 250 ML IV SCH ×2 (00:24→11:55)
[2018-04-05] MEDS: IV NS 0.9% 1,000 ML IV PRN (01:43)
[2018-04-05] MEDS: MEROPENEM 1 G in IV NS 0.9% 100 ML IV SCH ×4 (05:30→21:56)
[2018-04-05] MEDS: VANCOMYCIN HCL 125 MG/2.5 ML ORAL.SUSP PO SCH ×3 (05:30→17:15)
[2018-04-05 06:45] LABS: CALCIUM, SERUM 7.5 mg/dL (8.5-10.1); CARBON DIOXIDE 24 mmol/L (21-32); CHLORIDE 105 mmol/L (98-107); CREATININE 0.6 mg/dL (0.6-1.3); GLUCOSE 172 mg/dL (74-106); POTASSIUM 3.4 mmol/L (3.5-5.1); SODIUM SERUM 136 mmol/L (136-145); UREA NITROGEN, BLOOD 7 mg/dL (7-18)
[2018-04-05 07:41] LABS: EOSINOPHILS % (AUTO) 0.5 % (0.0-6.0); HEMATOCRIT 21 % (33-45); LYMPHOCYTES # (AUTO) 1.7 /CMM (0.8-4.8); LYMPHOCYTES % (AUTO) 4.5 % (20.0-44.0); MEAN CORPUSCULAR HGB CONC 33 g/dl (31.0-36.0); MEAN CORPUSCULAR VOLUME 96 fL (82-100); MONOCYTES # (AUTO) 1.1 /CMM (0.1-1.30); MONOCYTES % (AUTO) 3.1 % (2.0-12.0); NEUTROPHILS % (AUTO) 91.9 % (43.0-81.0); RDW COEFFICIENT OF VARIATION 18.9 (11.5-15.0); RED BLOOD CELL COUNT(AUTO) 2.16 MIL/uL (4.0-5.2)
--- NOTE | 2018-04-05 07:48 | NUR ---
MS/RN CLOSING NOTES PT AWAKE, REMAINS ON 2L O2 VIA NC, BREATHING EVEN AND UNLABORED. NO SOB OR PAIN NOTED AT THIS TIME. SOB NOTED UPON EXERTION. ASSISTED TO BSC PRN. IV TO RIGHT HAND PATENT AND INTACT RUNNING IVF ORDERED. TOTAL VOLUME TO BE INFUSING=2,000ML. NO SIGNIFICANT CHANGES OVERNIGHT. KEPT PT COMFORTABLE DURING SHIFT. ALL NEEDS MET. BED IN LOW/LOCKED POSITION WITH CALL LIGHT IN REACH. SIDE RAILS UPX2 AND BED ALARM ON FOR SAFETY. ENDORSED TO DAY SHIFT RN RAFA.
[2018-04-05 07:57] LABS: HEMOGLOBIN 6.9 g/dL (11.5-14.8); PLATELET COUNT (AUTO) 40 /CMM (150-450)
--- NOTE | 2018-04-05 08:00 | NUR ---
MS RN AM NOTES RECEIVED PATIENT IN BED, ALERT ORIENTED X2, PT IS A FALL RISK, ON BED ALARM.ON O2 AT 2L/MIN VIA N/C.WITH NO APPARENT DISTRESS OR DISCOMFORT AT THIS TIME. RESPIRATIONS EVEN AND UNLABORED. DENIES PAIN AND SOB. PATIENT WITH RIGHT UPPER CHEST PORTACATH.SITE CLEAN AND DRY. WITH ONGOING IVF RT WRIST INFUSING WELL.PATENT AND INTACT. BEDSIDE COMMODE WITH ASSISTANCE. BED IN LOW POSITION, CALL LIGHT WITHIN REACH, PT'S SPOUSE AT BED SIDE.
[2018-04-05 08:10] LABS: IMMUNOGLOBULIN A, SERUM 90 mg/dL (64-422); IMMUNOGLOBULIN G, SERUM 513 mg/dL (700-1600); IMMUNOGLOBULIN M, SERUM 68 mg/dL (26-217)
[2018-04-05] MEDS: ESCITALOPRAM OXALATE (10 MG) 10 MG TABLET PO SCH (08:16)
[2018-04-05] MEDS: AMLODIPINE BESYLATE 5 MG TABLET PO SCH (08:17)
[2018-04-05] MEDS: LIPASE/PROTEASE/AMYLASE 1 EACH CAPSULE.DR PO SCH ×3 (08:18→17:15)
[2018-04-05] MEDS: METOPROLOL SUCCINATE 25 MG TAB.SR.24H PO SCH (08:18)
[2018-04-05] MEDS: PANTOPRAZOLE 40 MG TABLET.DR PO SCH (08:19)
[2018-04-05] MEDS: POTASSIUM CHLORIDE 20 MEQ TAB.PRT.SR PO SCH ×2 (08:31→17:14)
[2018-04-05 09:33] LABS: BAND % (MANUAL) 4 % (0.0-5.0); EOSINOPHILS % (MANUAL) 1 % (0-4); LYMPHOCYTES % (MANUAL) 8 % (16-48); MONOCYTES % (MANUAL) 9 % (0-11.0); NEUTROPHILS % (MANUAL) 78 (42-76)
[2018-04-05 12:13] LABS: *SPE A/G RATIO 1.2 (0.7-1.7); *SPE ALBUMIN 2.5 g/dL (2.9-4.4); *SPE ALPHA-1-GLOBULIN 0.4 g/dL (0.0-0.4); *SPE ALPHA-2-GLOBULIN 0.6 g/dL (0.4-1.0); *SPE BETA GLOBULIN 0.7 g/dL (0.7-1.3); *SPE GLOBULIN, TOTAL 2.1 g/dL (2.2-3.9); *SPE M-SPIKE Not Observed g/dL (Not Observed); *SPEGAMMA GLOBULIN 0.5 g/dL (0.4-1.8)
[2018-04-05] MEDS: FOLIC ACID 1 MG TABLET PO SCH (16:37)
--- NOTE | 2018-04-05 17:00 | NUR ---
BLOOD TRANSFUSIONS 1 UNIT COMPLETED , PT HAD NO ADVERSE REACTION, VS ARE STABLE, NO FEVER, NO DISTRESS NOTED. WILL CONTINUE TO MONITOR
[2018-04-05] MEDS: MICAFUNGIN SODIUM 100 MG in IV NS 0.9% 100 ML IV SCH (17:05)
--- NOTE | 2018-04-05 18:49 | NUR ---
MS RN CLOSING NOTES PT RESTING IN THE BED AFTER 15 MIN.WALK WITH ASSISTANCE.NO DISTRESS OR SOB ARE NOTED. VS ARE STABLE. PT ALERT AND ORIENTED X3.CALL LIGHT WITHIN REACH
--- NOTE | 2018-04-05 19:30 | NUR ---
RN NOTES RECEIVED PT. AWAKE ION BED, A/OX4, AMBULATE WITH ASSIST, RIGHT CHEST WALL PORTACATH, DENIES PAIN, NO SOB, CALL LIGHT WITHIN REACH, [id number], CONTINUE TO MONITOR
--- NOTE | 2018-04-06 | NUR ---
RN NOTES PT REFUSED HER VANCOMYCIN IV S WELL VANCOMYCIN PO. PT STATED THAT "SHE'S ALREADY TAKING A LOT OF ANTIBIOTIC, SHE WANTS TO TAKE IT AGAIN TOMORROW"
[2018-04-06] MEDS: VANCOMYCIN HCL 125 MG/2.5 ML ORAL.SUSP PO SCH ×4 (06:18→17:09)
[2018-04-06 06:32] LABS: CALCIUM, SERUM 8.1 mg/dL (8.5-10.1); CARBON DIOXIDE 24 mmol/L (21-32); CHLORIDE 104 mmol/L (98-107); CREATININE 0.5 mg/dL (0.6-1.3); GLUCOSE 146 mg/dL (74-106); MAGNESIUM 1.6 mg/dL (1.8-2.4); PHOSPHORUS 1.8 mg/dL (2.5-4.9); POTASSIUM 3.7 mmol/L (3.5-5.1); SODIUM SERUM 136 mmol/L (136-145); UREA NITROGEN, BLOOD 6 mg/dL (7-18)
--- NOTE | 2018-04-06 06:34 | NUR ---
RN NOTES AWAKE, MORNING CARE RENDERED, DENIES PAIN, NO SOB, CALL LIGHT WITHIN REACH,S IDERAILSUPX2, PT. NEEDS ATTENDED
--- NOTE | 2018-04-06 07:40 | NUR ---
M/S RN - Assessment Patient awake, A/ O x 3, denies pain, not in any form of distress. Saline lock on the right hand is patent, intact, with no signs of infiltration. Labs reviewed noted with low magnesium 1.6 and phosphorus 1.8, Dr. Montes made aware. Fall precautions maintained. All needs attended and met. at bedside updated with treatment plan. Will continue with current medical management.
[2018-04-06 08:00] VITALS: BP 161/83
[2018-04-06] MEDS ORDERED: POTASSIUM PHOSPHATE MM 15 MMOL in IV D5W 250 ML IV SCH (08:00)
[2018-04-06 08:10] LABS: BASOPHILS # (AUTO) 0.1 /CMM (0.0-0.2); BASOPHILS % (AUTO) 0.4 % (0.0-2.0); EOSINOPHILS % (AUTO) 0.6 % (0.0-6.0); HEMATOCRIT 26 % (33-45); HEMOGLOBIN 8.8 g/dL (11.5-14.8); LYMPHOCYTES # (AUTO) 1.9 /CMM (0.8-4.8); LYMPHOCYTES % (AUTO) 5.7 % (20.0-44.0); MEAN CORPUSCULAR HGB CONC 33 g/dl (31.0-36.0); MEAN CORPUSCULAR VOLUME 94 fL (82-100); MONOCYTES # (AUTO) 1.1 /CMM (0.1-1.30); MONOCYTES % (AUTO) 3.2 % (2.0-12.0); NEUTROPHILS # (AUTO) 30.6 /CMM (1.8-8.9); NEUTROPHILS % (AUTO) 90.1 % (43.0-81.0); RDW COEFFICIENT OF VARIATION 21.4 (11.5-15.0)
[2018-04-06] MEDS: Magnesium 1GM/D5W 100ML PREMIX 100 ML IV SCH ×3 (08:10→10:00)
[2018-04-06] MEDS: FOLIC ACID 1 MG TABLET PO SCH (08:11)
[2018-04-06] MEDS: AMLODIPINE BESYLATE 5 MG TABLET PO SCH (08:12)
[2018-04-06] MEDS: ESCITALOPRAM OXALATE (10 MG) 10 MG TABLET PO SCH (08:12)
[2018-04-06] MEDS: POTASSIUM CHLORIDE 20 MEQ TAB.PRT.SR PO SCH (08:13)
[2018-04-06] MEDS: PANTOPRAZOLE 40 MG TABLET.DR PO SCH (08:14)
[2018-04-06] MEDS: METOPROLOL SUCCINATE 25 MG TAB.SR.24H PO SCH (08:14)
[2018-04-06] MEDS: LIPASE/PROTEASE/AMYLASE 1 EACH CAPSULE.DR PO SCH ×3 (08:15→17:08)
[2018-04-06 08:31] LABS: PLATELET COUNT (AUTO) 44 /CMM (150-450)
[2018-04-06 08:53] LABS: BAND % (MANUAL) 2 % (0.0-5.0); LYMPHOCYTES % (MANUAL) 7 % (16-48); MONOCYTES % (MANUAL) 8 % (0-11.0); NEUTROPHILS % (MANUAL) 83 (42-76)
[2018-04-06] MEDS ORDERED: POTASSIUM PHOSPHATE MM 7.5 MMOL in IV D5W 100 ML IV SCH (09:30)
[2018-04-06 10:24] LABS: THYROID STIMULATING HORMONE 2.895 uIU/mL (0.358-3.74); URIC ACID 1.8 mg/dL (2.6-7.2)
[2018-04-06] MEDS: VANCOMYCIN 1 GM in IV D5W 250 ML IV SCH ×3 (11:12)
[2018-04-06] MEDS: FUROSEMIDE 40 MG/4 ML VIAL IV SCH (11:14)
[2018-04-06] MEDS: MEROPENEM 1 G in IV NS 0.9% 100 ML IV SCH ×2 (12:20→21:31)
[2018-04-06] MEDS: POTASSIUM PHOSPHATE MM 7.5 MMOL in IV D5W 100 ML IV SCH ×2 (13:00→16:05)
[2018-04-06 16:00] VITALS: BP 145/75
[2018-04-06] MEDS: MICAFUNGIN SODIUM 100 MG in IV NS 0.9% 100 ML IV SCH (17:10)
--- NOTE | 2018-04-06 19:12 | NUR ---
M/S RN - Notes Patient in no acute distress, remain afebrile, magnesium and phosphorus replaced. Patient was educated regarding the importance of medication compliance and she agreed to take IV antibiotics tonight. Fall precautions maintained. Will endorse to night nurse for continuity of care.
--- NOTE | 2018-04-06 19:30 | NUR ---
RN NOTES RECEIVED PT. AWAKE ON BED, A/OX4, AMBULATORY, DENIES PAIN, NO SOB, SELMA CATH IN PLACE, CALL LIGHT WITHIN REACH, SIDERAILSUPX2, CONTINUE TO MONITOR
[2018-04-06 20:00] VITALS: BP 147/74
[2018-04-07] MEDS: VANCOMYCIN HCL 125 MG/2.5 ML ORAL.SUSP PO SCH ×3 (00:49→12:57)
[2018-04-07] MEDS: VANCOMYCIN 1 GM in IV D5W 250 ML IV SCH ×2 (00:49→12:00)
[2018-04-07] MEDS: MEROPENEM 1 G in IV NS 0.9% 100 ML IV SCH ×2 (05:49→12:51)
[2018-04-07 06:13] LABS: EOSINOPHILS % (AUTO) 0.5 % (0.0-6.0); HEMATOCRIT 28 % (33-45); HEMOGLOBIN 9.3 g/dL (11.5-14.8); LYMPHOCYTES # (AUTO) 1.6 /CMM (0.8-4.8); LYMPHOCYTES % (AUTO) 5.2 % (20.0-44.0); MEAN CORPUSCULAR HGB CONC 33 g/dl (31.0-36.0); MEAN CORPUSCULAR VOLUME 96 fL (82-100); MONOCYTES # (AUTO) 1.2 /CMM (0.1-1.30); MONOCYTES % (AUTO) 3.9 % (2.0-12.0); NEUTROPHILS # (AUTO) 27.9 /CMM (1.8-8.9); NEUTROPHILS % (AUTO) 90.4 % (43.0-81.0); PLATELET COUNT (AUTO) 56 /CMM (150-450); RDW COEFFICIENT OF VARIATION 20.4 (11.5-15.0)
[2018-04-07 06:28] LABS: CALCIUM, SERUM 8.6 mg/dL (8.5-10.1); CARBON DIOXIDE 26 mmol/L (21-32); CHLORIDE 103 mmol/L (98-107); CREATININE 0.7 mg/dL (0.6-1.3); GLUCOSE 207 mg/dL (74-106); POTASSIUM 3.6 mmol/L (3.5-5.1); SODIUM SERUM 137 mmol/L (136-145); UREA NITROGEN, BLOOD 7 mg/dL (7-18)
[2018-04-07 06:35] LABS: WHITE BLOOD COUNT (AUTO) 30.9 K/uL (4.3-11.0)
--- NOTE | 2018-04-07 06:45 | NUR ---
RN NOTES AWAKE, DENIES PAIN, NO SOB, MORNING CARE RENDERED,CALL LIGHT WITHI SEGUNDO, OGAILSUPX2, PT. NEED ATTENDED
--- NOTE | 2018-04-07 07:33 | NUR ---
MS RN OPENING NOTES RECEIVED PATIENT IN STABLE CONDITION. IN NO APPARENT DISTRESS. BEDSIDE RAILS ARE UPX2. BED IS LOCKED AND LOWERED. CALL LIGHT IS WITHIN REACH. IV LINE IS INTACT AND PATENT. WILL CONTINUE TO MONITOR.
[2018-04-07] MEDS: PANTOPRAZOLE 40 MG TABLET.DR PO SCH (08:33)
[2018-04-07] MEDS: LIPASE/PROTEASE/AMYLASE 1 EACH CAPSULE.DR PO SCH ×2 (08:34→12:57)
[2018-04-07] MEDS: AMLODIPINE BESYLATE 5 MG TABLET PO SCH (08:34)
[2018-04-07] MEDS: FOLIC ACID 1 MG TABLET PO SCH (08:34)
[2018-04-07 08:36] VITALS: BP 164/81
[2018-04-07] MEDS: METOPROLOL SUCCINATE 25 MG TAB.SR.24H PO SCH (08:36)
[2018-04-07] MEDS: ESCITALOPRAM OXALATE (10 MG) 10 MG TABLET PO SCH (08:36)
[2018-04-07] MEDS: FUROSEMIDE 40 MG/4 ML VIAL IV SCH (08:37)
[2018-04-07 08:40] LABS: BAND % (MANUAL) 3 % (0.0-5.0); LYMPHOCYTES % (MANUAL) 4 % (16-48); MONOCYTES % (MANUAL) 10 % (0-11.0); NEUTROPHILS % (MANUAL) 83 (42-76)
--- NOTE | 2018-04-07 13:00 | NUR ---
PROVIDED EXITCARE INSTRUCTIONS TO THE PATIENT. IV WAS DISCONTINUED. ID BAND WAS REMOVED. ALL NEEDS WERE MET. PRESCRIPTION WAS PROVIDED TO THE PATIENT. PORTACATH ACCESS WAS DISCONTINUED. HOME MEDICATIONS WERE PROVIDED TO THE PATIENT. BELONGINGS WERE CHECKED. PATIENT PREFERS TO EAT LUNCH BEFORE SHE GOES HOME WITH HER .
--- NOTE | 2018-04-07 13:19 | NUR ---
PATIENT DISCHARGED IN STABLE CONDITION. IN NO APPARENT DISTRESS. ALL NEEDS WERE MET. PATIENT ESCORTED OUT OF THE HOSPITAL VIA WHEELCHAIR BY RAINA BUCK. PATIENT WILL BE DRIVEN HOME BY .
[2018-04-10 07:08] LABS: *SPE A/G RATIO 1.1 (0.7-1.7); *SPE ALBUMIN 2.4 g/dL (2.9-4.4); *SPE ALPHA-1-GLOBULIN 0.4 g/dL (0.0-0.4); *SPE ALPHA-2-GLOBULIN 0.6 g/dL (0.4-1.0); *SPE BETA GLOBULIN 0.6 g/dL (0.7-1.3); *SPE GLOBULIN, TOTAL 2.1 g/dL (2.2-3.9); *SPE M-SPIKE Not Observed g/dL (Not Observed); *SPEGAMMA GLOBULIN 0.5 g/dL (0.4-1.8)
[2018-04-13 05:14] LABS: HAPTOGLOBIN 166 mg/dL (34-200)
== END 2018-04-07 13:22 | disposition home or self-care (01) | DRG 871 ==
LOC: ER 08:14 → TELE 10:58 → MED 04-03 16:20
PROVIDERS: ADMIT Nurse Practitioner Acute Care; ATTEND Nurse Practitioner Acute Care
PROC: 30233N1 Transfusion of Nonautologous Red Blood Cells into Peripheral Vein, Percutaneous Approach (ICD-10-PCS; principal; 2018-04-05)
DX: A41.9 Sepsis, unspecified organism (principal); G92 Toxic encephalopathy; J18.9 Pneumonia, unspecified organism; C25.9 Malignant neoplasm of pancreas, unspecified; I50.32 Chronic diastolic (congestive) heart failure; N39.0 Urinary tract infection, site not specified; D61.818 Other pancytopenia; E87.1 Hypo-osmolality and hyponatremia; E87.2 Acidosis; A04.72 Enterocolitis due to Clostridium difficile, not specified as recurrent; D69.6 Thrombocytopenia, unspecified; I11.0 Hypertensive heart disease with heart failure; D63.8 Anemia in other chronic diseases classified elsewhere; E87.6 Hypokalemia; Z79.899 Other long term (current) drug therapy; E88.09 Other disorders of plasma-protein metabolism, not elsewhere classified; E83.42 Hypomagnesemia; D69.59 Other secondary thrombocytopenia; E53.8 Deficiency of other specified B group vitamins; E83.39 Other disorders of phosphorus metabolism; E86.0 Dehydration; I25.10 Atherosclerotic heart disease of native coronary artery without angina pectoris; I27.20 Pulmonary hypertension, unspecified; Z79.84 Long term (current) use of oral hypoglycemic drugs; Z90.710 Acquired absence of both cervix and uterus; D63.0 Anemia in neoplastic disease; R65.20 Severe sepsis without septic shock
CPT/HCPCS: 36415; 70450-TC; 71045-TC; 80048-TC; 80053-TC; 80061-TC; 80076-TC; 80202-TC; 81000-TC; 82140-TC; 82248-TC; 82306; 82378; 82728-TC; 82746; 82784; 83010; 83540-TC; 83605-TC; 83615-TC; 83735-TC; 84100-TC; 84155; 84165; 84443-TC; 84484-TC; 84550-TC; 85025-TC; 85045-TC; 85652-TC; 85730-TC; 86334; 86850-TC; 86921-TC; 87040-TC; 87081-TC; 87086-TC; 93307-TC; A4216; A4606; J1940; J2185; J2248; J3370; J3475; J3490; J7030; J7050; J7060; P9016-BL; Q9967; Z7610

== ENCOUNTER 2018-08-01 14:21 | Inpatient (IN) | payer MEDICARE, MEDICAID ==
[~2018-08-01] VITALS: Ht 177.8 cm; Wt 54.4 kg
[~2018-08-01 14:21] MED LIST changes: +AMLO5TAB7 PO; +ENOX60DI SQ; -IRBE1TAB43 PO; +LIPA1CAP15 PO; +METH2.5T PO; +METO-356 PO
[2018-08-01 15:44] LABS: HEMATOCRIT 25 % (33-45); HEMOGLOBIN 8.7 g/dL (11.5-14.8); RDW COEFFICIENT OF VARIATION 21.1 (11.5-15.0)
[2018-08-01 15:46] LABS: CALCIUM, SERUM 7.7 mg/dL (8.5-10.1); CARBON DIOXIDE 24 mmol/L (21-32); CHLORIDE 108 mmol/L (98-107); CREATININE 1.6 mg/dL (0.6-1.3); GLUCOSE 148 mg/dL (74-106); POTASSIUM 3.2 mmol/L (3.5-5.1); SODIUM SERUM 140 mmol/L (136-145); UREA NITROGEN, BLOOD 47 mg/dL (7-18)
[2018-08-01 15:47] LABS: MEAN CORPUSCULAR HGB CONC 34 g/dl (31.0-36.0); MEAN CORPUSCULAR VOLUME 103 fL (82-100); PLATELET COUNT (AUTO) 75 /CMM (150-450); RED BLOOD CELL COUNT(AUTO) 2.46 MIL/uL (4.0-5.2); WHITE BLOOD COUNT (AUTO) 9.3 K/uL (4.3-11.0)
--- NOTE | 2018-08-01 15:50 | NUR ---
WEAKNESS SINCE THIS MORNING, NAD NOTED, VSS, RESP EVEN AND UNLABORED, PT WAS PUT 0N MONITOR AND HOSPITAL GOWN. AT BS.
[2018-08-01 15:53] LABS: INR 1.06 (0.85-1.15); TROPONIN I 0.193 ng/mL (0.00-0.056)
[2018-08-01 15:58] LABS: ALANINE AMINOTRANSFERASE 17 U/L (12-78); ALKALINE PHOSPHATASE 117 U/L (46-116); ASPARTATE AMINOTRANSFERASE 33 U/L (15-37); B-TYPE NATRIURETIC PEPTIDE 19768 PG/ML (0-125); BILIRUBIN,DIRECT 0.3 mg/dL (0.0-0.2); BILIRUBIN,TOTAL 1.3 mg/dL (0.2-1.0); TOTAL PROTEIN, SERUM 5.1 g/dL (6.4-8.2)
[2018-08-01 16:11] LABS: APPEARANCE,URINE Cloudy (CLEAR); BILIRUBIN,URINE SMALL (NEGATIVE); BLOOD, URINE Large Ery/uL (NEGATIVE); COLOR,URINE Yellow (YELLOW); KETONES,URINE Negative (NEGATIVE); LEUKOCYTE ESTERASE ,URINE Negative (NEGATIVE); NITRITE, URINE Negative (NEGATIVE); PROTEIN,URINE >=300 mg/dl (NEGATIVE); UGLUCOSE 100 MG/DL mg/dL (NEGATIVE)
[2018-08-01] MEDS ORDERED: FUROSEMIDE 40 MG/4 ML VIAL IV ONE (16:30)
[2018-08-01] MEDS ORDERED: ASPIRIN 81 MG TAB.CHEW PO ONE (16:30)
[2018-08-01 16:38] LABS: BACTERIA,URINE Few /HPF (None Seen); SQUAMOUS EPITHELIAL CELL,UR Rare /HPF (None Seen); URINE AMORPHOUS URATE Moderate /HPF (None Seen); WBC,URINE 0-2 /HPF (0-3)
[2018-08-01 16:54] LABS: LYMPHOCYTES % (MANUAL) 7 % (16-48); MONOCYTES % (MANUAL) 6 % (0-11.0); NEUTROPHILS % (MANUAL) 87 (42-76)
[2018-08-01] MEDS ORDERED: POTASSIUM CL. PREMIX PERIPHER. 100 ML ONE (16:56)
[2018-08-01] MEDS ORDERED: FUROSEMIDE 40 MG/4 ML VIAL ONE (16:56)
[2018-08-01] MEDS ORDERED: ASPIRIN EC 81 MG TABLET.DR PO ONE (16:56)
[2018-08-01] MEDS: POTASSIUM CL. PREMIX PERIPHER. 50 ML IV SCH ×2 (17:10→18:16)
[2018-08-01] MEDS ORDERED: FURO40TA5 PO (17:14)
[2018-08-01] MEDS ORDERED: IRBE1TAB43 PO (17:14)
[2018-08-01] MEDS ORDERED: MAG HYDROX/AL HYDROX/SIMETH 30 ML UDC PO PRN (18:00)
[2018-08-01] MEDS ORDERED: MAGNESIUM HYDROXIDE 30 ML UDC PO PRN (18:00)
[2018-08-01] MEDS ORDERED: HYDROCODONE/APAP 5/325MG 1 EACH TABLET PO PRN (18:00)
[2018-08-01] MEDS ORDERED: ACETAMINOPHEN 325 MG TABLET PO PRN (18:00)
[2018-08-01] MEDS ORDERED: ONDANSETRON HCL/PF 4 MG/2 ML VIAL IVP PRN (18:00)
[2018-08-01] MEDS ORDERED: Z GUARD REMEDY 2 OZ OINT TP PRN (18:00)
--- NOTE | 2018-08-01 18:15 | NUR ---
MS RN RECEIVED A NEW ADMISSION FROM ER, AWAKE,ALERT,ORIENTED X4,NOT IN ANY FORM OF DISTRESS, RESPIRATIONS EVEN AND UNLABORED,NO SOB NOTED, LUNGS ARE DIMINISHED,ABDOMEN SOFT,POSITIVE BOWEL SOUNDS, DENIES PAIN AT THIS TIME,ALL NEEDS ATTENDED.
[2018-08-01] MEDS ORDERED: MORPHINE SULFATE INJ 4 MG/ML DISP.SYRIN IV PRN (18:30)
--- NOTE | 2018-08-01 18:45 | NUR ---
MS RN CLARIFIED ORDER FROM ANNALEE LEACHER, ECHO DONE LAST MARCH, NEW ECHO ORDER WAS CANCELLED PER ANNALEE WILL MONITOR PATIENT.
--- NOTE | 2018-08-01 18:48 | NUR ---
MS RN ON BED, NO DISTRESS NOTED.
--- NOTE | 2018-08-01 19:20 | NUR ---
MANAGER IT SECURITY OPENING NOTES RECEIVED PT IN BED WITH FAMILY AT THE BEDSIDE. PT AWARE A/O X2 , WEEK . PT CAN AMBULATE WITH ASSISTANCE.BREATHING UNLABORED AND EVEN.NO DISTRESS NOTED AT THIS TIME. SELMA CATH R CHEST WALL IN PLACE. PT ON CHEMOTHERAPY , LAST WAS DONE 2 WEEKS AGO. PT ON TELE SR BBB 89. WILL CONTINUE TO MONITOR
[2018-08-01 20:00] VITALS: BP 182/91
--- NOTE | 2018-08-01 20:00 | NUR ---
PT BP 182 / 91 PULSE 96. MADE AWARE LAKISHA MAIA PT DOES NOT HAVE PRN BP MEDICATIONS .
--- NOTE | 2018-08-01 20:20 | NUR ---
PT COMPLAINED OF PAIN 10/10 (ABDOMEN). PRN NORCO WAS GIVEN.
[2018-08-01] MEDS ORDERED: hydrALAZINE HCL IV 20 MG VIAL IV PRN (20:30)
--- NOTE | 2018-08-01 20:30 | NUR ---
PT BP HIGH . CASTING WHEEL OPERATOR HELPER DR CORY MEIER. TELEPHONE ORDER HYDRALAZINE 25 MG PRN FOR SBP >160 WAS GIVEN. ORDER CARRIED OUT.
--- NOTE | 2018-08-01 20:30 | NUR ---
PT LEFT UNIT VIA WHEELCHAIR FOR PROCEDURE (MELANI BARKSDALE).
[2018-08-01] MEDS ORDERED: hydrALAZINE HCL 25 MG TABLET PO PRN (21:00)
--- NOTE | 2018-08-01 21:15 | NUR ---
PT BACK TO UNIT. NO DISTRESS NOTED , NO COMPLAIN OF PAIN. BP 157/81. WILL CONTINUE TO MONITOR .
[2018-08-02] VITALS: BP 157/97
[2018-08-02 05:38] VITALS: BP 163/76
[2018-08-02 06:18] LABS: CARBON DIOXIDE 21 mmol/L (21-32); CHLORIDE 110 mmol/L (98-107); CREATININE 1.7 mg/dL (0.6-1.3); GLUCOSE 118 mg/dL (74-106); MAGNESIUM 1.8 mg/dL (1.8-2.4); PHOSPHORUS 5.5 mg/dL (2.5-4.9); POTASSIUM 3.2 mmol/L (3.5-5.1); SODIUM SERUM 142 mmol/L (136-145); TROPONIN I 0.176 ng/mL (0.00-0.056); UREA NITROGEN, BLOOD 48 mg/dL (7-18)
[2018-08-02 06:22] LABS: CHOLESTEROL 204 mg/dL (<200); HDL CHOLESTEROL 39 mg/dL (40-60); LDL 144 mg/dL (0-99); THYROID STIMULATING HORMONE 3.976 uIU/mL (0.358-3.74); TRIGLYCERIDES 167 mg/dL (30-150)
[2018-08-02 06:39] LABS: EOSINOPHILS % (AUTO) 0.4 % (0.0-6.0); HEMATOCRIT 25 % (33-45); LYMPHOCYTES # (AUTO) 1.3 /CMM (0.8-4.8); LYMPHOCYTES % (AUTO) 15.4 % (20.0-44.0); MEAN CORPUSCULAR HGB CONC 32 g/dl (31.0-36.0); MEAN CORPUSCULAR VOLUME 106 fL (82-100); MONOCYTES # (AUTO) 1.2 /CMM (0.1-1.30); MONOCYTES % (AUTO) 13.9 % (2.0-12.0); NEUTROPHILS % (AUTO) 70.3 % (43.0-81.0); PLATELET COUNT (AUTO) 103 /CMM (150-450); RDW COEFFICIENT OF VARIATION 22.1 (11.5-15.0); RED BLOOD CELL COUNT(AUTO) 2.35 MIL/uL (4.0-5.2); WHITE BLOOD COUNT (AUTO) 8.5 K/uL (4.3-11.0)
--- NOTE | 2018-08-02 06:40 | NUR ---
DIRECTOR IMAGING CLOSING NOTES PT IN BED.STATUS CODE TO CHANGE TO DNR/DNI. PT AWAKE A/O X3. PT CAN AMBULATE WITH ASSISTANCE.BREATHING UNLABORED AND EVEN.NO DISTRESS NOTED AT THIS TIME. DENIES PAIN AT THIS TIME .SELMA CATH R CHEST WALL IN PLACE. PT ON CHEMOTHERAPY. PT ON TELE SR 87.WILL ENDORSE TO NEXT SHIFT.
--- NOTE | 2018-08-02 08:02 | NUR ---
RUG DYER HELPER OPENING NOTES RECEIVED PATIENT IN BED, RESTING AOX3, BREATHING EVEN AND UNLABORED OM RA AND TOLERATING. SKIN SOFT AND WARM TO TOUCH. NO COMPLAINT OF PAIN OR DISCOMFORT AT THE MOMENT, AM CARE RENDERED. BED IN LOWEST LOCKED POSITION, WILL CONTINUE TO MONITOR.
[2018-08-02 08:22] VITALS: BP 158/99
[2018-08-02 08:26] LABS: BAND % (MANUAL) 1 % (0.0-5.0); LYMPHOCYTES % (MANUAL) 10 % (16-48); MONOCYTES % (MANUAL) 13 % (0-11.0); NEUTROPHILS % (MANUAL) 76 (42-76)
[2018-08-02] MEDS: ESCITALOPRAM OXALATE (10 MG) 10 MG TABLET PO SCH (08:46)
[2018-08-02] MEDS: FOLIC ACID 1 MG TABLET PO SCH (08:46)
[2018-08-02] MEDS: PANTOPRAZOLE 40 MG TABLET.DR PO SCH (08:46)
[2018-08-02] MEDS: METOPROLOL SUCCINATE 25 MG TAB.SR.24H PO SCH (08:46)
[2018-08-02] MEDS: ASPIRIN 81 MG TAB.CHEW PO SCH (08:47)
[2018-08-02] MEDS ORDERED: FUROSEMIDE 40 MG TABLET PO SCH (09:00)
[2018-08-02] MEDS: LIPASE/PROTEASE/AMYLASE 1 EACH CAPSULE.DR PO SCH ×3 (09:13→17:00)
--- NOTE | 2018-08-02 09:29 | NUR ---
MULTIPLE PUNCH PRESS OPERATOR NOTES TRANSFERED CARE OF PT TO [facility].
--- NOTE | 2018-08-02 09:30 | NUR ---
RN NOTES RECEIVED PATIENT IN THE BED, A/O X2/3 BOLIVIAN SPEAKER. PATIENT ON TELE MONITOR SR- 78. PATIENT HAS NO ACUTE RESPIRATORY DISTRESS, ROOM AIR, V/S STABLE. ENCOURAGED TO EXPRESS FEELINGS AND CONCERNS. SCHEDULED MEDICATION ADMINISTERED. PATIENT REFUSED PAIN AT THIS TIME. PATIENT HAS SELMA CATH ON RIGHT CHEST WALL INTACT. PATIENT USING BATHROOM WITH MINIMAL ASSIST. NEEDS ATTENDED AND ANTICIPATED. CALL LIGHT WITHIN TO REACH. SAFETY PRECAUTION MAINTAINED ALL THE TIME.
--- NOTE | 2018-08-02 11:30 | NUR ---
RN NOTES PATIENT GEOTHERMAL POWERPLANT SUPERVISOR FOR MRI AT THIS TIME.
--- NOTE | 2018-08-02 12:00 | NUR ---
RN NOTES PATIENT BACK FROM MRI, NO ACUTE RESPIRATORY DISTRESS, V/S STABLE, SCHEDULED MEDICATION ADMINISTERED, NEXT TO THE BED, CONTINUED MONITORING. PATIENT TURN AND REPOSITION SELF IN THE BED.
[2018-08-02] MEDS: POTASSIUM CL. PREMIX PERIPHER. 50 ML IV SCH ×3 (12:25→15:03)
[2018-08-02] MEDS: ALBUTEROL FS 2.5 MG/0.5 ML VIAL.NEB NEB SCH ×3 (13:10→23:30)
--- NOTE | 2018-08-02 14:50 | NUR ---
BREATHING TREATMENT GIVEN AT 1330. NO SOB OR RESP DISTRESS NOTED AT THIS TIME.
[2018-08-02 16:00] VITALS: BP 168/95
[2018-08-02] MEDS: AMLODIPINE BESYLATE 5 MG TABLET PO SCH (16:59)
--- NOTE | 2018-08-02 18:05 | NUR ---
RN NOTES RECEIVED CALL FROM LAB PATIENT BLOOD CULTURE GRAM POSITIVE FOR COCCI, NOTIFIED ANNALEE MESA
[2018-08-02] MEDS ORDERED: FEE PK DOSING 1 MIN EA MC ONE (18:22)
--- NOTE | 2018-08-02 18:30 | NUR ---
RN NOTES PATIENT STABLE SCHEDULED MEDICATION ADMINISTERED. PER ANNALEE HIV NURSE ORDERED BLOOD CULTURE AND VANCOMYCIN ANTIBIOTIC. NEEDS ATTENDED AND ANTICIPATED. PER WHIT BENITEZ HIV NURSE ORDERED ANOTHER BLOOD CULTURE X2. FAMILY NEXT TO THE BED. ENDORSED ONCOMING NURSE FOR PLAN OF CARE.
[2018-08-02] MEDS: VANCOMYCIN 0.75 GM in IV D5W 250 ML IV SCH (19:01)
[2018-08-02] MEDS: ENOXAPARIN SODIUM 30 MG/0.3 ML DISP.SYRIN SQ SCH (19:01)
[2018-08-02 20:00] VITALS: BP 159/99
[2018-08-02] MEDS: ATORVASTATIN 40 MG TABLET PO SCH (21:13)
[2018-08-03 06:53] LABS: BASOPHILS # (AUTO) 0.1 /CMM (0.0-0.2); BASOPHILS % (AUTO) 0.6 % (0.0-2.0); EOSINOPHILS % (AUTO) 0.7 % (0.0-6.0); HEMATOCRIT 25 % (33-45); HEMOGLOBIN 7.9 g/dL (11.5-14.8); LYMPHOCYTES # (AUTO) 1.6 /CMM (0.8-4.8); LYMPHOCYTES % (AUTO) 18.7 % (20.0-44.0); MEAN CORPUSCULAR HGB CONC 32 g/dl (31.0-36.0); MEAN CORPUSCULAR VOLUME 106 fL (82-100); MONOCYTES # (AUTO) 1.7 /CMM (0.1-1.30); MONOCYTES % (AUTO) 20.1 % (2.0-12.0); NEUTROPHILS # (AUTO) 5.2 /CMM (1.8-8.9); NEUTROPHILS % (AUTO) 59.9 % (43.0-81.0); PLATELET COUNT (AUTO) 135 /CMM (150-450); RDW COEFFICIENT OF VARIATION 22.3 (11.5-15.0); RED BLOOD CELL COUNT(AUTO) 2.35 MIL/uL (4.0-5.2); WHITE BLOOD COUNT (AUTO) 8.6 K/uL (4.3-11.0)
[2018-08-03 07:05] LABS: CALCIUM, SERUM 7.6 mg/dL (8.5-10.1); CARBON DIOXIDE 21 mmol/L (21-32); CHLORIDE 109 mmol/L (98-107); CREATININE 1.8 mg/dL (0.6-1.3); GLUCOSE 120 mg/dL (74-106); POTASSIUM 3.4 mmol/L (3.5-5.1); SODIUM SERUM 141 mmol/L (136-145); UREA NITROGEN, BLOOD 49 mg/dL (7-18)
[2018-08-03] MEDS: ALBUTEROL FS 2.5 MG/0.5 ML VIAL.NEB NEB SCH ×3 (07:22→23:38)
--- NOTE | 2018-08-03 07:49 | NUR ---
SEMICONDUCTOR PROCESSOR OPENING NOTES RECEIVED PATIENT IN BED, RESTING, AWAKE AOX3. BREATHING EVEN AND UNLABORED ON ROOM AIR, NO SOB. INTACT SKIN, PORT-A-CATH ON THE RIGHT CHEST WALL, INTACT AND PATENT. BED IN LOWEST LOCKED POSITION, CALL LIGHT WITHIN REACH AT ALL TIMES. WILL CONTINUE TO MONITOR
[2018-08-03] MEDS: FOLIC ACID 1 MG TABLET PO SCH (08:27)
[2018-08-03] MEDS: ESCITALOPRAM OXALATE (10 MG) 10 MG TABLET PO SCH (08:29)
[2018-08-03] MEDS: AMLODIPINE BESYLATE 5 MG TABLET PO SCH (08:29)
[2018-08-03] MEDS: LIPASE/PROTEASE/AMYLASE 1 EACH CAPSULE.DR PO SCH ×3 (08:30→17:21)
[2018-08-03] MEDS: ASPIRIN 81 MG TAB.CHEW PO SCH (08:30)
[2018-08-03] MEDS: PANTOPRAZOLE 40 MG TABLET.DR PO SCH (08:30)
[2018-08-03] MEDS: METOPROLOL SUCCINATE 25 MG TAB.SR.24H PO SCH (08:30)
[2018-08-03 09:12] LABS: LYMPHOCYTES % (MANUAL) 15 % (16-48); MONOCYTES % (MANUAL) 17 % (0-11.0); NEUTROPHILS % (MANUAL) 68 (42-76)
[2018-08-03] MEDS ORDERED: POTASSIUM CHLORIDE 10 MEQ TABLET.SA PO ONE (11:00)
[2018-08-03] MEDS: IV NS 0.9% 1,000 ML IV PRN ×2 (11:02→18:56)
--- NOTE | 2018-08-03 11:53 | NUR ---
CARE TRANSITION COORDINATOR NOTES PER MD ORDER, INFUSING NS 100ML/HR VIA PORT-A-CATH DUE TO HIGH BUN. ADMINISTERED POTASSIUM TABLET DUE TO LOW POTASSIUM
[2018-08-03 16:00] VITALS: BP 134/45
[2018-08-03] MEDS: VANCOMYCIN 0.75 GM in IV D5W 250 ML IV SCH (18:40)
--- NOTE | 2018-08-03 18:50 | NUR ---
PAPER WOOD CUTTER CLOSING NOTES PATIENT REMAINS IN BED, AWAKE A/O X3, BREATHING EVEN AND UNLABORED, NO SOB . DENIES PAIN AT THIS TIME .SELMA CATH R CHEST WALL IN PLACE, INFUSING NS @ 100ML/HR AND VANCO 250ML/HR. PT ON CHEMOTHERAPY. NO COMPLAINT OF PAIN OR DISCOMFORT AT THIS TIME, NO SIGNIFICANT CHANGE DURING SHIFT, WILL ENDORSE TO NIGHT NURSE FOR RAFA.
--- NOTE | 2018-08-03 19:00 | NUR ---
MS RN NOTES Received patient A/O x3, on semi-Mcneil's position on bed, with patent [id number] with IV NS infusing well @ 100m/hr as ordered. On RA, no SOB/respiratory depression noted. Patient claimed she feels weak at this time. Placed call light at bedside within easy reach. Kept comfortable on bed. Will continue to monitor accordingly.
[2018-08-03 20:00] VITALS: BP 133/82
[2018-08-03] MEDS: ATORVASTATIN 40 MG TABLET PO SCH (21:04)
[2018-08-03] MEDS: ENOXAPARIN SODIUM 30 MG/0.3 ML DISP.SYRIN SQ SCH (21:06)
[2018-08-04 06:37] LABS: EOSINOPHILS % (AUTO) 0.7 % (0.0-6.0); HEMATOCRIT 24 % (33-45); HEMOGLOBIN 7.6 g/dL (11.5-14.8); LYMPHOCYTES # (AUTO) 1.5 /CMM (0.8-4.8); LYMPHOCYTES % (AUTO) 17.5 % (20.0-44.0); MEAN CORPUSCULAR HGB CONC 32 g/dl (31.0-36.0); MEAN CORPUSCULAR VOLUME 105 fL (82-100); MONOCYTES # (AUTO) 1.9 /CMM (0.1-1.30); NEUTROPHILS # (AUTO) 5.2 /CMM (1.8-8.9); NEUTROPHILS % (AUTO) 59.8 % (43.0-81.0); PLATELET COUNT (AUTO) 172 /CMM (150-450); RDW COEFFICIENT OF VARIATION 21.6 (11.5-15.0); RED BLOOD CELL COUNT(AUTO) 2.24 MIL/uL (4.0-5.2); WHITE BLOOD COUNT (AUTO) 8.7 K/uL (4.3-11.0)
--- NOTE | 2018-08-04 06:44 | NUR ---
MS SHAHID CLOSING NOTES Patient asleep on right sidelying position on bed with patent RCW port-A-cath, SL. On BRP with standby assistance, safely ambulated to toilet without injury. Remained to feel weak as claimed. No new complaints made within the shift. On RA, no SOB/respiratory distress noted. Afebrile the whole shift, no new complaints made. Kept bed low and lock, siderails x2 up. Call light within easy reach. Endorsed. Addendum: 08/04/18 at 0649 by SHAHNAZ MURGUIA RN Duplicate
--- NOTE | 2018-08-04 06:47 | NUR ---
MS RN CLOSING NOTES Patient asleep on right sidelying position on bed with patent RCW port-A-cath with NS infusing well @ 100ml/hr as ordered. On BRP with standby assistance, safely ambulated to toilet without injury. Remained to feel weak as claimed. No new complaints made within the shift. On RA, no SOB/respiratory distress noted. Afebrile the whole shift, no new complaints made. Kept bed low and lock, siderails x2 up. Call light within easy reach. Endorsed.
[2018-08-04 06:56] LABS: CALCIUM, SERUM 7.4 mg/dL (8.5-10.1); CARBON DIOXIDE 21 mmol/L (21-32); CHLORIDE 110 mmol/L (98-107); CREATININE 1.6 mg/dL (0.6-1.3); GLUCOSE 125 mg/dL (74-106); POTASSIUM 3.2 mmol/L (3.5-5.1); SODIUM SERUM 140 mmol/L (136-145); UREA NITROGEN, BLOOD 43 mg/dL (7-18)
--- NOTE | 2018-08-04 07:20 | NUR ---
RN OPENING NOTES RECEIVED PT. IN BED A&OX3, LETHARGIC. BREATHING UNLABORED ON ROOM AIR. NO S/S OF ACUTE DISTRESS. IV FLUIDS RUNNING AT 100 ML/HR VIA RIGHT CHEST WALL PORT CATHETER. BED IS IN LOWEST, AND LOCKED POSITION. 2 SIDE RAILS UP, AND INSTRUCTED PT. TO USE CALL LIGHT FOR ASSISTANCE. ALL NEEDS MET. WILL CONTINUE TO ASSESS AND MONITOR.
[2018-08-04] MEDS: IV NS 0.9% 1,000 ML IV PRN (07:30)
[2018-08-04] MEDS: ALBUTEROL FS 2.5 MG/0.5 ML VIAL.NEB NEB SCH ×3 (07:35→23:39)
[2018-08-04 08:00] VITALS: BP 162/84
[2018-08-04] MEDS ORDERED: POTASSIUM CHLORIDE 20 MEQ TAB.PRT.SR PO SCH (08:00)
[2018-08-04] MEDS: PANTOPRAZOLE 40 MG TABLET.DR PO SCH (08:12)
[2018-08-04] MEDS: LIPASE/PROTEASE/AMYLASE 1 EACH CAPSULE.DR PO SCH ×4 (08:13→18:44)
[2018-08-04] MEDS: ASPIRIN 81 MG TAB.CHEW PO SCH (08:20)
[2018-08-04] MEDS: METOPROLOL SUCCINATE 25 MG TAB.SR.24H PO SCH (08:20)
[2018-08-04] MEDS: AMLODIPINE BESYLATE 5 MG TABLET PO SCH (08:20)
[2018-08-04] MEDS: FOLIC ACID 1 MG TABLET PO SCH (08:24)
[2018-08-04 08:37] LABS: EOSINOPHILS % (MANUAL) 1 % (0-4); LYMPHOCYTES % (MANUAL) 18 % (16-48); MONOCYTES % (MANUAL) 16 % (0-11.0); NEUTROPHILS % (MANUAL) 65 (42-76)
[2018-08-04] MEDS: ESCITALOPRAM OXALATE (10 MG) 10 MG TABLET PO SCH (09:33)
[2018-08-04] MEDS: POTASSIUM CHLORIDE 20 MEQ POWDER PACKET PO SCH ×3 (09:38→12:00)
--- NOTE | 2018-08-04 12:18 | NUR ---
PT. COULD NOT TOLERATE LAST DOSE OF KLOR POWDER 20 MEQ PT. REQUESTED TO HAVE IT CHANGED TO TABLET. CALLED PHARMACIST AND WAS APPROVED TO CHANGE LAST POTASSIUM CHLORIDE ORDER TO K DUR PO 20 MEQ.
[2018-08-04] MEDS ORDERED: POTASSIUM CHLORIDE 20 MEQ TAB.PRT.SR PO ONE (12:30)
[2018-08-04 16:00] VITALS: BP 125/65
[2018-08-04] MEDS: VANCOMYCIN 0.75 GM in IV D5W 250 ML IV SCH (18:27)
--- NOTE | 2018-08-04 19:37 | NUR ---
RN CLOSING NOTES PT. IS IN BED A&OX3-4, LETHARGIC. PT.'S DAUGHTER IN [place] IS AT THE BEDSIDE. BREATHING UNLABORED ON ROOM AIR. NO S/S OF ACUTE DISTRESS. IV ANTIBIOTICS RUNNING VIA RIGHT CHEST WALL PORT CATHETER. BED IS IN LOWEST, AND LOCKED POSITION. 2 SIDE RAILS UP, AND INSTRUCTED PT. TO USE CALL LIGHT FOR ASSISTANCE. ALL NEEDS MET. WILL ENDORSE REPORT TO NURSE.
--- NOTE | 2018-08-04 19:38 | NUR ---
RN OPENING NOTES RECEIVED PT IN BED, ALERT AND ORIENTED X 3, VERBALLY RESPONSIVE, DAUGHTER AT BEDSIDE. PT NOTED WITH NO SOB, BREATHING EVEN AND UNLABORED AND IN NO ACUTE DISTRESS. ALL PATIENT'S NEEDS ATTENDED TO. PLACED JUDSON LIGHT WITHIN EASY REACH. WILL CONTINUE TO MONITOR.
[2018-08-04 20:00] VITALS: BP 145/80
[2018-08-04] MEDS: ATORVASTATIN 40 MG TABLET PO SCH (21:33)
[2018-08-04] MEDS: ENOXAPARIN SODIUM 30 MG/0.3 ML DISP.SYRIN SQ SCH (21:34)
[2018-08-05] MEDS: IV NS 0.9% 1,000 ML IV PRN (00:09)
--- NOTE | 2018-08-05 06:30 | NUR ---
RN CLOSING NOTES PATIENT IN BED, ALERT AND ORIENTED X 3, VERBALLY RESPONSIVE, NO SOB, BREATHING EVEN AND UNLABORED, IN NO ACUTE DISTRESS. NO C/O ABDOMINAL PAIN THROUGHOUT THE SHIFT, NO CHANGES IN CONDITION. PT WITH IVF INFUSING WELL ORDERED. ALL PATIENT'S NEEDS ATTENDED TO, BED PLACED IN LOW POSITION AND LOCKED IN PLACE. WILL ENDORSE TO AM SHIFT NURSE FOR CONTINUITY OF CARE.
[2018-08-05] MEDS: ALBUTEROL FS 2.5 MG/0.5 ML VIAL.NEB NEB SCH ×2 (07:13→14:36)
--- NOTE | 2018-08-05 07:35 | NUR ---
RN OPENING NOTES RECEIVED PT. IN BED SLEEPING. BREATHING UNLABORED ON ROOM AIR. NO S/S OF ACUTE DISTRESS. IV FLUIDS RUNNING AT 100 ML/HR VIA RIGHT CHEST WALL PORT-A CATHETER. BED IS IN LOWEST, AND LOCKED POSITION. 2 SIDE RAILS UP, AND CALL LIGHT IS WITHIN REACH FOR ASSISTANCE. WILL CONTINUE TO ASSESS AND MONITOR.
[2018-08-05 08:00] VITALS: BP 150/100
[2018-08-05] MEDS: PANTOPRAZOLE 40 MG TABLET.DR PO SCH (08:16)
[2018-08-05] MEDS: LIPASE/PROTEASE/AMYLASE 1 EACH CAPSULE.DR PO SCH ×3 (08:16→17:28)
[2018-08-05] MEDS ORDERED: AMLODIPINE BESYLATE 5 MG TABLET PO SCH (09:00)
[2018-08-05] MEDS: ASPIRIN 81 MG TAB.CHEW PO SCH (09:34)
[2018-08-05] MEDS: FOLIC ACID 1 MG TABLET PO SCH (09:34)
[2018-08-05] MEDS: ESCITALOPRAM OXALATE (10 MG) 10 MG TABLET PO SCH (09:35)
[2018-08-05] MEDS: METOPROLOL SUCCINATE 25 MG TAB.SR.24H PO SCH (09:35)
[2018-08-05] MEDS ORDERED: ATOR40TA PO (10:07)
[2018-08-05] MEDS ORDERED: AMLO5TAB7 PO (10:07)
[2018-08-05] MEDS ORDERED: METO25TA3 PO (10:07)
[2018-08-05] MEDS ORDERED: ASPI-1169 PO (10:07)
[2018-08-05] MEDS ORDERED: DAPT350V IV (10:16)
[2018-08-05 11:39] LABS: ALANINE AMINOTRANSFERASE 8 U/L (12-78); ALBUMIN 1.6 g/dL (3.4-5.0); ALKALINE PHOSPHATASE 106 U/L (46-116); ASPARTATE AMINOTRANSFERASE 20 U/L (15-37); BILIRUBIN,TOTAL 0.6 mg/dL (0.2-1.0); CALCIUM, SERUM 7.4 mg/dL (8.5-10.1); CARBON DIOXIDE 18 mmol/L (21-32); CHLORIDE 107 mmol/L (98-107); CREATININE 1.5 mg/dL (0.6-1.3); GLUCOSE 149 mg/dL (74-106); MAGNESIUM 1.6 mg/dL (1.8-2.4); PHOSPHORUS 3.7 mg/dL (2.5-4.9); POTASSIUM 3.8 mmol/L (3.5-5.1); SODIUM SERUM 136 mmol/L (136-145); TOTAL PROTEIN, SERUM 4.8 g/dL (6.4-8.2); UREA NITROGEN, BLOOD 35 mg/dL (7-18)
[2018-08-05 11:49] LABS: BASOPHILS % (AUTO) 0.1 % (0.0-2.0); EOSINOPHILS % (AUTO) 0.8 % (0.0-6.0); HEMATOCRIT 25 % (33-45); LYMPHOCYTES % (AUTO) 14.3 % (20.0-44.0); MEAN CORPUSCULAR HGB CONC 32 g/dl (31.0-36.0); MEAN CORPUSCULAR VOLUME 106 fL (82-100); MONOCYTES # (AUTO) 1.2 /CMM (0.1-1.30); MONOCYTES % (AUTO) 18.1 % (2.0-12.0); NEUTROPHILS # (AUTO) 4.6 /CMM (1.8-8.9); NEUTROPHILS % (AUTO) 66.7 % (43.0-81.0); PLATELET COUNT (AUTO) 251 /CMM (150-450); RDW COEFFICIENT OF VARIATION 21.4 (11.5-15.0); RED BLOOD CELL COUNT(AUTO) 2.39 MIL/uL (4.0-5.2); WHITE BLOOD COUNT (AUTO) 6.9 K/uL (4.3-11.0)
[2018-08-05 12:22] LABS: LYMPHOCYTES % (MANUAL) 19 % (16-48); MONOCYTES % (MANUAL) 13 % (0-11.0); NEUTROPHILS % (MANUAL) 68 (42-76)
[2018-08-05 16:00] VITALS: BP 135/81
[2018-08-05] MEDS: VANCOMYCIN 0.75 GM in IV D5W 250 ML IV SCH (17:29)
--- NOTE | 2018-08-05 18:45 | NUR ---
PT. DISCHARGE PT. WAS DISCHARGED IN STABLE CONDITION. DISCHARGE INSTRUCTIONS WERE PROVIDED WITH EDUCATION AND PAPERS WERE SIGNED BY PT.'S FAMILY. BELONGINGS LIST WAS CHECKED AND SIGNED. MEDICATION EDUCATION WAS PROVIDED AND EXPLAINED. ALL QUESTIONS ANSWERED. PT. LEFT WITH , AND HER SON BY PRIVATE CAR. PT. WAS ASSISTED TO THE [facility] LOBBY BY WHEELCHAIR.
== END 2018-08-05 19:00 | disposition home health service (06) | DRG 682 ==
LOC: ER 14:26 → TELE 17:04 → MED 08-02 10:05
PROVIDERS: ADMIT Nurse Practitioner Acute Care; ATTEND Nurse Practitioner Acute Care
DX: N17.9 Acute kidney failure, unspecified (principal); G93.41 Metabolic encephalopathy; I21.A1 Myocardial infarction type 2; E43 Unspecified severe protein-calorie malnutrition; I67.83 Posterior reversible encephalopathy syndrome; D61.818 Other pancytopenia; C25.9 Malignant neoplasm of pancreas, unspecified; I50.32 Chronic diastolic (congestive) heart failure; D68.59 Other primary thrombophilia; Z68.1 Body mass index [BMI] 19.9 or less, adult; I11.0 Hypertensive heart disease with heart failure; K21.9 Gastro-esophageal reflux disease without esophagitis; Z86.73 Personal history of transient ischemic attack (TIA), and cerebral infarction without residual deficits; Z79.84 Long term (current) use of oral hypoglycemic drugs; Z90.710 Acquired absence of both cervix and uterus; E11.9 Type 2 diabetes mellitus without complications; D69.59 Other secondary thrombocytopenia; E78.5 Hyperlipidemia, unspecified; E83.39 Other disorders of phosphorus metabolism; E87.6 Hypokalemia; F41.9 Anxiety disorder, unspecified; D63.8 Anemia in other chronic diseases classified elsewhere; D52.9 Folate deficiency anemia, unspecified; E88.09 Other disorders of plasma-protein metabolism, not elsewhere classified; E86.9 Volume depletion, unspecified; G89.3 Neoplasm related pain (acute) (chronic)
CPT/HCPCS: 36415; 70450-TC; 70551-TC; 71045-TC; 78582; 80048-TC; 80053-TC; 80061-TC; 80076-TC; 80202-TC; 81000-TC; 82962-TC; 83605-TC; 83735-TC; 83880; 84100-TC; 84443-TC; 84484-TC; 85025-TC; 85378-TC; 85730-TC; 87040-TC; 87081-TC; 87086-TC; 93307-TC; 93970-TC; A4606; A9540; A9567; J1650; J1940; J3370; J3480; J7030; J7060; Z7610